=== PATIENT | male | born 1965 | race Caucasian/White ===

== ENCOUNTER 2019-12-08 09:30 | Outpatient (RCR) | payer MEDICARE, MEDICAID, SELFPAY ==
--- NOTE | 2019-11-21 11:22 | HP.PTEVAL_ITS ---
Patient's Visit Information GAGE ANTOINE is a 54 year old M referred to Physical Therapy by NABIL GOODWIN with a diagnosis of S/P SHOULDER SURGERY. Date of Evaluation: 11/21/19 Physical Therapist: Jair Raphael, PT, Cert MDT, OCS - Visit Plan Frequency: 2x /Week Duration: 12WKS Plan: S/P TSA ON OCT 30 [facility]. SEE GUIDELINES FOR PRORESSION WITH TSA. SLING 6 WEEKS,NO IR,CROSS CHEST ADDUCTION 12 WKS,AVOID EXTENSION ,NO SUPPORTING OF BODY WT 12 WKS. S/P 3WEEKS 11/20. INTIALLY PROM IN SCAPTION AND PROGRESS TO PHASE III,IV,AND V PER GUIDELIESS,MANUAL THERAPY ,CP/MHP - Subjective This 54 male presents to physical therapy with right shoulder total replacement. Patient underwent s/p right TSA done on 10/31/[address] Melani Aguilar at [facility]. D/C the next day with sling. Patient recently PA Nov 13 at start PT. 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 Denies parathesia/tingling. Patient symptoms affects sleeping .Patient has limitations with all ADLS' and self hygines with right UE Patient surgery affects ADLS and housework tasks above 90 degrees . Patient surgery affectrs QOL and will have good outcome.Patient tried PT prior PT prior surgery.RTD 6weeks. VOCATION: Construction Own business. SOCAIL: - Pain Right Shoulder Pain Intensity (Out of 10): 6 Pain Intensity Range: 10 - Objective POSTURE: SLING INTACT. NEURO: intact,denies. parathesia/tingling. SKIN:anterior inscion well approximate. PALPATION: unremarkable. PROM RIGHT SHOULDER: supine flexion 90 degrees,abduction in scaption 90 degrees,ER 20 degrees 45 degrees abduction. MMT: NT - Goals Goal 1:: I with HEP per Guidelines TSA. Goal Time Frame: 12-16 Weeks Goal 2:: Patient improve PROM shoulder flexion 140,abd 120 ER 60 for function.(STG) Goal Time Frame: 4-6 Weeks Goal 3:: Patient to decrease shoulder pain with functional activies by 75% for function Goal Time Frame: 12-16 Weeks Goal 4:: Patient increase AROM shoulder flexion 120 degrees ,abd 100 degrees and ER 60 degrees or > to improve function with ADLS. Goal Time Frame: 8-12 Weeks Goal 5:: Patient increase strength RTC 4/5 and deltoid 4-/5 to improve function with ADL's Goal Time Frame: 12-16 Weeks Goal 6:: Patient improve quick dash by 10 points or > to improve QOL. Goal Time Frame: 12-16 Weeks - Rehabilitation Potential Physical Therapy Diagnosis: Patient underwent s/p TSA on Oct 30 at [facility] with impairments of ROM,strength and function thus will benifit from skilled PT. Rehabilitation Potential: Good - Anticipated Interventions Patient/Client Instruction: Educate patient on: Condition, Plan of Care For the Purpose of:: To decrease pain, To increase ROM, To improve muscle performance and motor function, To improve ability to perform ADL's, To increase tolerance to activity/condition/position, To improve performance and independence with ADL's, To improve ability of physical actions for home/comm unity/work/leisure, To improve health of tissue, To decrease soft tissue restriction, To increase flexibility/ROM, To assume or resume ADL's, To reduce risk of recurrence, To improve tolerance to ADL's Therapeutic Exercise to Include: Strength training, Postural training, Passive ROM, Active ROM Comment: SEE GUIDELINES FOR TSA FOR PROGRESSION For the Purpose of:: To decrease pain, To increase ROM, To improve muscle performance and motor function, To improve ability to perform ADL's, To increase tolerance to activity/condition/position, To improve performance and independence with ADL's, To improve ability of physical actions for home/community/work/leisure, To improve health of tissue, To decrease soft tissue restriction, To increase flexibility/ROM, To assume or resume ADL's, To improve tolerance to ADL's IF ES: Yes Cryotherapy (ice pack, ice massage): Yes Thermo therapy (hot pack): Yes For the Purpose of:: To decrease pain, To improve nutrient delivery to tissue, To increase oxygenation perfusion Thank you for the opportunity to evaluate your patient. For Medicare and Medicare HMO plans, please review the plan of care and approve it. It will need to be FAXED BACK to us at [phone] for Medicare purposes. For Medicare only, by signing this I certify the plan of care. Please let me know if there are questions or concerns regarding this plan of care. Physician Signatu re: Date:
--- NOTE | 2020-03-13 10:03 | HP.PTDCNRP_ITS ---
GAGE ANTOINE was seen in my office for initial evaluation on 11/21/19. The following Plan of Care was established for this patient: Initial Frequency: 2x /Week Initial Duration: 12WKS Patient/Client Instruction: Educate patient on: Condition, Plan of Care For the Purpose of:: To decrease pain, To increase ROM, To improve muscle performance and motor function, To improve ability to perform ADL's, To increase tolerance to activity/condition/position, To improve performance and independence with ADL's, To improve ability of physical actions for home/community/work/leisure, To improve health of tissue, To decrease soft tissue restriction, To increase flexibility/ROM, To assume or resume ADL's, To reduce risk of recurrence, To improve tolerance to ADL's Therapeutic Exercise to Include: Strength training, Postural training, Passive ROM, Active ROM For the Purpose of:: To decrease pain, To increase ROM, To improve muscle performance and motor function, To improve ability to perform ADL's, To increase tolerance to activity/condition/position, To improve performance and independence with ADL's, To improve ability of physical actions for home/community/work/leisure, To improve health of tissue, To decrease soft tis hattie restriction, To increase flexibility/ROM, To assume or resume ADL's, To improve tolerance to ADL's IF ES: Yes Cryotherapy (ice pack, ice massage): Yes Thermo therapy (hot pack): Yes For the Purpose of:: To decrease pain, To improve nutrient delivery to tissue, To increase oxygenation perfusion This patient was last seen in our office . Pertinent comments regarding their Physical therapy will appear below: Patient was seen for left shoulder TSA for HEP ,patient didnt complete PT thus is D/C. At this point I will be discontinuing this patient from physical therapy. I would be happy to see this patient again in the future if found appropriate by the physician. Thank you! Jair Raphael, PT, Cert MDT, OCS
== END 2019-12-08 19:00 | disposition home or self-care (01) ==
LOC: PT 09:30
PROVIDERS: PCP Internal Medicine
DX: Z98.890 Other specified postprocedural states (principal)
CPT/HCPCS: 97110; 97140; 97162

== ENCOUNTER 2020-01-01 00:36 | Emergency (ER) | payer MEDICARE, MEDICAID, SELFPAY ==
[2020-01-01 00:36] VITALS: BP 155/85; PULSE 56; PULSE 57; RESP 17; TEMP 36.9; O2SAT 95; O2SAT 97; BMI 41.8
[2020-01-01 00:41] VITALS: O2SAT 95
--- NOTE | 2020-01-01 01:19 | EKG12_ITS ---
Test Reason : SOB Blood Pressure : / mmHG Vent. Rate : 058 BPM Atrial Rate : 058 BPM P-R Int : 114 ms QRS Dur : 086 ms QT Int : 426 ms P-R-T Axes : 012 054 055 degrees QTc Int : 418 ms Sinus bradycardia Low voltage QRS Borderline ECG Confirmed by ANA KAY, CAPRI ([id number]), fan mail editor MAGNOLIA HAMMOND ([id number]) on 01/02/2020 10:35:22 AM Referred By: PAUL Confirmed By:CAPRI PEREZ MD
--- NOTE | 2020-01-01 01:22 | ED.VISSUMM ---
- ER Visit Summary Date of Service: 01/01/20 Chief Complaint: Shortness of breath History of Present Illness: The patient is a 54 M who presents with shortness of breath that is been getting worse over the past 2 days. Patient states he tried using his CPAP tonight but states this did not help. Patient states nothing makes his breathing worse or makes it better. Patient checked his blood pressure tonight and noted it was elevated. Patient then came to the emergency department. Patient denies any fevers or chills. Patient denies any cough. Patient admits to nausea but denies any vomiting. Physical Examination: Vital signs are stable. Patient is afebrile. Patient is in no acute distress. Oral mucosa is pink and moist. Neck is supple. Trachea is midline. There is no JVD noted. Heart was regular rate and rhythm. Lungs are clear but diminished in the bases bilaterally. Abdomen is soft. Bowel sounds are normal. There is no tenderness. There is no rebound or guarding noted. Skin is warm dry. Cranial nerves II through XII are intact. There are no focal motor or sensory deficits noted. Extremities are intact. There is no calf tenderness or edema. Test Results: EKG shows sinus bradycardia with a rate of 58. There are no acute ST or T wave changes. Portable chest x-ray is obtained. There is no acute cardiopulmonary process. CBC, basic metabolic profile, and troponin were obtained and were within normal limits. Emergency Department Course and Treatment: Patient did not wait for his results. Patient left without completing treatment. Disposition: Eloped Impression: 1. Dyspnea This note was generated with [employer] dictation software. It may contain incorrect words, spelling, and punctuation that were not noted in review of the chart prior to signing ED Disposition - Plan for ED Patient: Disposition: Home or Assisted Living Diagnosis: Dyspnea Instructions: ED Dyspnea Referrals: Yamilex Ellington DO [Primary Care Provider] - 5-7 Days
[2020-01-01] MEDS: Ipratropium/Albuterol Sulfate 3 ML AMPUL.NEB INHALATION (01:33)
[2020-01-01 01:39] VITALS: BP 129/75; PULSE 60; RESP 14; O2SAT 100
--- NOTE | 2020-01-01 01:48 | RAD_ITS ---
STUDY: X-RAY CHEST REASON FOR EXAM: Male, 54 years old. DYSPNEA,FEVER,BLURRED VISION TECHNIQUE: Single AP portable view of the chest. COMPARISON: None. FINDINGS: The lungs are clear and expanded. There is no demonstrated pleural abnormality. Normal size heart. Normal mediastinum and guido. Normal visualized pulmonary arteries. Normal visualized aortic arch and descending thoracic aorta. Normal visualized thoracic spine. Partially visualized bilateral shoulder arthroplasty. There is no demonstrated abnormality of the visualized soft tissue structures of the upper abdomen. RAD/Chest 1 View (Portable) IMPRESSION: No active pulmonary disease. Electronically Signed: Alexis Camp MD at 2:07 EDT Tel , Service support ,
[2020-01-01 01:52] LABS: Absolute Lymphocyte Count 3.88 X10^3/uL (0.83-4.51); Absolute Neutrophil Count 5.2 X10^3/uL (2.0-7.7); Basophil# 0.06 X10^3/uL; Basophil% 0.5 % (0-1); Eosinophil# 0.84 X10^3/uL; Eosinophils% 7.7 % (0-5); Hematocrit 41.3 % (40-54); Hemoglobin 13.1 g/dL (13.0-16.5); Lymphocyte # 3.88 X10^3/ul (4.0); Lymphocyte % 35.6 % (19-41); Mean Corp Hgb Conc 31.7 g/dL (32-36); Mean Corpuscular Hgb 28.4 pg (27.0-32.0); Mean Corpuscular Volume 89.4 fL (80-94); Mean Platelet Vol. 10.5 fl (6.2-12.0); Monocyte# 0.86 X10^3/uL; Monocyte% 7.9 % (0-10); NRBC Flagged by Analyzer 0 % (0-5); Neutrophil # 5.23 X10^3/uL (2.7-7.7); Neutrophil % 47.9 % (47-70); Platelet Count 277 K/mm3 (150-450); RBC Distribution Width CV 15.6 % (11.6-14.6); RBC Distribution Width SD 50.7 fl (35.1-43.9); Red Blood Count 4.62 M/mm3 (4.6-6.2); White Blood Count 10.9 K/mm3 (4.4-11.0)
[2020-01-01 02:16] LABS: ALB/GLOB Ratio 0.8 RATIO (0.9-2.4); AST(SGOT) 10 U/L (15-37); Alanine Aminotransfer ALT/SGPT 24 U/L (16-61); Albumin, Serum 3.2 g/dL (3.2-5.0); Alkaline Phosphatase 76 U/L (45-117); BUN 10 mg/dL (7-18); BUN/Creat Ratio 9.5 RATIO (10-20); Calcium,Total 8.6 mg/dL (8.5-10.1); Chloride 109 mmol/L (98-107); Creatinine, Serum 1.05 mg/dL (0.70-1.30); EST Glomerular Filtration Rate 78 mL/min (>60); Est Glom Filt Rate - Afr Amer 95 mL/min (>60); Glucose 144 mg/dL (74-106); Potassium 4.3 mmol/L (3.5-5.1); Protein, Total 7.2 g/dL (6.4-8.2); Sodium Level 141 mmol/L (136-145)
[2020-01-01 02:17] LABS: Anion Gap 6 (5-15)
[2020-01-01 02:41] VITALS: BP 161/76; PULSE 59; RESP 17; O2SAT 97
--- NOTE | 2020-01-01 02:41 | ED.RN ---
PT LEFT BEFORE MD COULD GIVE RESULTS. WITH HIM. NO IV TO REMOVE.
== END 2020-01-01 02:41 | disposition home or self-care (01) ==
PROVIDERS: Emergency Provider Emergency Medicine; PCP Internal Medicine
DX: R06.02 Shortness of breath (principal); E66.9 Obesity, unspecified; E11.9 Type 2 diabetes mellitus without complications; I10 Essential (primary) hypertension; G47.30 Sleep apnea, unspecified; I48.91 Unspecified atrial fibrillation; Z72.0 Tobacco use; Z79.02 Long term (current) use of antithrombotics/antiplatelets; Z79.84 Long term (current) use of oral hypoglycemic drugs; Z79.899 Other long term (current) drug therapy
CPT/HCPCS: 36415; 71045; 80053; 84484; 85025; 93005; 99282

== ENCOUNTER 2020-06-24 02:15 | Emergency (ER) | payer MEDICARE, MEDICAID, SELFPAY ==
[2020-06-24 02:16] VITALS: BP 166/110; PULSE 133; RESP 20; TEMP 37; O2SAT 99; BMI 42.0
--- NOTE | 2020-06-24 02:17 | ED.RN ---
RN CALLED FOR EKG, PULLED OLD EKGS FOR
--- NOTE | 2020-06-24 02:35 | RAD_ITS ---
STUDY: X-RAY CHEST REASON FOR EXAM: Male, 55 years old. Palpitations TECHNIQUE: Single AP portable view of the chest. COMPARISON: 01/01/2020. FINDINGS: The lungs are clear and expanded. There is no demonstrated pleural abnormality. Normal size heart. Normal mediastinum and guido. Normal visualized pulmonary arteries. Normal visualized aortic arch and descending thoracic aorta. Normal visualized thoracic spine. Bilateral shoulder prosthesis in place. Degenerative disease of the shoulders. There is no demonstrated abnormality of the visualized soft tissue structures of the upper abdomen. RAD/Chest 1 View (Portable) IMPRESSION: No acute cardiopulmonary disease. Electronically Signed: Dianna Castrejon MD at 3:04 EDT , Service support ,
--- NOTE | 2020-06-24 02:35 | EKG12_ITS ---
Test Reason : CHEST PRESSURE Blood Pressure : / mmHG Vent. Rate : 143 BPM Atrial Rate : 125 BPM P-R Int : 000 ms QRS Dur : 086 ms QT Int : 320 ms P-R-T Axes : 000 062 -22 degrees QTc Int : 493 ms Atrial fibrillation Abnormal ECG Confirmed by GELY KAY, IRIS ([id number]), editor at large MAGNOLIA HAMMOND ([id number]) on 06/25/2020 8:42:31 AM Referred By: PAUL Confirmed By:CLARENCE HONG MD
--- NOTE | 2020-06-24 02:36 | EKG12_ITS ---
Test Reason : REPEAT Blood Pressure : / mmHG Vent. Rate : 057 BPM Atrial Rate : 057 BPM P-R Int : 126 ms QRS Dur : 084 ms QT Int : 426 ms P-R-T Axes : 041 061 063 degrees QTc Int : 414 ms Sinus bradycardia Otherwise normal ECG Confirmed by GELY KAY, IRIS ([id number]), editor school photograph MAGNOLIA HAMMOND ([id number]) on 06/25/2020 8:42:46 AM Referred By: PAUL Confirmed By:CLARENCE HONG MD
--- NOTE | 2020-06-24 02:37 | ED.VISSUMM ---
- ER Visit Summary Date of Service: 06/24/20 Chief Complaint: Palpitations History of Present Illness: The patient is a 55 M who presents with palpitations and chest pain that is been intermittent for the past 2-1/2 weeks. Patient states that he is been having episodes of atrial fibrillation ever since he got his first Covid vaccine 2-1/2 weeks ago. Patient states that he can feel palpitations and his heart racing whenever he goes into atrial fibrillation. Patient states he has some substernal pressure whenever he goes into that. Patient states he takes sotalol. Patient states the sotalol seems to work approximately an hour and a half after he takes it and he goes back into a normal sinus rhythm. Patient admits to some shortness of breath. Patient denies any nausea or vomiting. Patient does admit to a mild headache. Physical Examination: Vital signs are stable. Patient is afebrile. Patient is in no acute distress. Oral mucosa is pink and moist. Neck is supple. Trachea is midline. There is no JVD noted. Heart was regular rate and rhythm. Lungs are clear and equal bilaterally. Abdomen is soft. Bowel sounds are normal. There is no tenderness. There is no rebound or guarding noted. Skin is warm dry. Cranial nerves II through XII are intact. There are no focal motor or sensory deficits noted. Extremities are intact. There is no calf tenderness or edema. Test Results: EKG was obtained. On my interpretation, it showed atrial fibrillation with a rate of 143. There are no acute ST or T wave changes. The atrial fibrillation is new compared to previous EKG dated 01/01/2020. CBC and comprehensive metabolic profile were within normal limits. PT with INR and PTT were normal. Troponin was normal. Portable 1 view chest x-ray was obtained. On my interpretation, lung santos are clear. There is normal cardiac silhouette. Bony thorax is normal. There is no acute process noted. Radiologist also interpreted the x-ray and agrees. Emergency Department Course and Treatment: While here in the emergency department, patient converted back to a normal sinus rhythm. Repeat EKG was obtained. On my interpretation, it showed a sinus bradycardia with a rate of 57. There are no acute ST or T wave changes. RI interval, QRS interval, and QTc interval are all normal. [place] is normal. Patient was instructed to continue his medications as prescribed. Patient was instructed to follow-up with his sky diver in 2 to 3 days. Patient understood and was agreeable with the plan. All questions were answered. Disposition: Discharge home Impression: 1. Paroxysmal atrial fibrillation This note was generated with [employer] dictation software. It may contain incorrect words, spelling, and punctuation that were not noted in review of the chart prior to signing ED Disposition - Plan for ED Patient: Disposition: Home or Assisted Living Diagnosis: Paroxysmal atrial fibrillation Instructions: ED AFIB Referrals: Yamilex Ellington DO [Primary Care Provider] - 3-5 Days
[2020-06-24 02:42] LABS: Absolute Lymphocyte Count 4.39 X10^3/uL (0.83-4.51); Absolute Neutrophil Count 5.1 X10^3/uL (2.0-7.7); Basophil# 0.07 X10^3/uL; Basophil% 0.6 % (0-1); Eosinophils% 7.2 % (0-5); Hematocrit 45.7 % (40-54); Hemoglobin 15.3 g/dL (13.0-16.5); Lymphocyte # 4.39 X10^3/ul (0.83-4.51); Lymphocyte % 39.8 % (19-41); Mean Corp Hgb Conc 33.5 g/dL (32-36); Mean Corpuscular Hgb 29.8 pg (27.0-32.0); Mean Corpuscular Volume 88.9 fL (80-94); Mean Platelet Vol. 10.3 fl (6.2-12.0); Monocyte# 0.64 X10^3/uL; Monocyte% 5.8 % (0-10); NRBC Flagged by Analyzer 0 % (0-5); Neutrophil # 5.12 X10^3/uL (2.7-7.7); Neutrophil % 46.4 % (47-70); Platelet Count 266 K/mm3 (150-450); RBC Distribution Width CV 15.7 % (11.6-14.6); RBC Distribution Width SD 51.7 fl (35.1-43.9); Red Blood Count 5.14 M/mm3 (4.6-6.2)
[2020-06-24 02:51] LABS: Prothrombin Time (Protime)PT. 12.4 SECONDS (11.7-14.9)
[2020-06-24 02:53] LABS: Partial Thromboplast Time 30.3 Seconds (24.1-36.2)
[2020-06-24 03:00] LABS: ALB/GLOB Ratio 0.8 RATIO (0.9-2.4); AST(SGOT) 8 U/L (15-37); Alanine Aminotransfer ALT/SGPT 23 U/L (16-61); Albumin, Serum 3.6 g/dL (3.2-5.0); Alkaline Phosphatase 75 U/L (45-117); Anion Gap 5 (5-15); BUN 12 mg/dL (7-18); BUN/Creat Ratio 13.6 RATIO (10-20); Calcium,Total 8.9 mg/dL (8.5-10.1); Chloride 105 mmol/L (98-107); Creatinine, Serum 0.88 mg/dL (0.70-1.30); EST Glomerular Filtration Rate 95 mL/min (>60); Est Glom Filt Rate - Afr Amer 115 mL/min (>60); Estimated Creatinine Clearance 105.33 ml/min; Globulin 4.3 g/dL (2.2-4.2); Glucose 226 mg/dL (74-106); Potassium 3.7 mmol/L (3.5-5.1); Protein, Total 7.9 g/dL (6.4-8.2); Sodium Level 138 mmol/L (136-145)
[2020-06-24 03:08] VITALS: BP 140/74; PULSE 57; RESP 20; O2SAT 100
[2020-06-24 03:40] VITALS: BP 127/62; PULSE 56; RESP 16; O2SAT 99
== END 2020-06-24 03:40 | disposition home or self-care (01) ==
PROVIDERS: Emergency Provider Emergency Medicine; PCP Internal Medicine
DX: I48.0 Paroxysmal atrial fibrillation (principal); F17.200 Nicotine dependence, unspecified, uncomplicated; Z79.02 Long term (current) use of antithrombotics/antiplatelets
CPT/HCPCS: 71045; 80053; 84484; 85025; 85610; 85730; 93005; 99284; A4216

== ENCOUNTER 2020-09-04 03:02 | Inpatient (IN) | payer MEDICARE, MEDICAID, SELFPAY ==
[2020-09-04] VITALS (19 sets, daily range): BP systolic 75–129; BP diastolic 50–97; PULSE 71–151; RESP 9–24; TEMP 36.2–36.7; O2SAT 86–99; BMI 41.5; BMI 41.3
--- NOTE | 2020-09-04 03:12 | RAD_ITS ---
STUDY: X-RAY CHEST REASON FOR EXAM: Male, 55 years old. chest pain TECHNIQUE: Single AP portable view of the chest. COMPARISON: 06/24/2020. FINDINGS: The lungs are clear and expanded. There is no demonstrated pleural abnormality. Normal size heart. Normal mediastinum and guido. Normal visualized pulmonary arteries. Normal visualized aortic arch and descending thoracic aorta. Normal visualized thoracic spine. Right-sided proximal humeral prosthesis in place. There is no demonstrated abnormality of the visualized soft tissue structures of the upper abdomen. RAD/Chest 1 View (Portable) IMPRESSION: No acute cardiopulmonary disease. Electronically Signed: Dianna Castrejon MD at 3:41 EDT , Service support ,
--- NOTE | 2020-09-04 03:12 | EKG12_ITS ---
Test Reason : CP Blood Pressure : / mmHG Vent. Rate : 147 BPM Atrial Rate : 133 BPM P-R Int : 000 ms QRS Dur : 088 ms QT Int : 300 ms P-R-T Axes : 000 064 026 degrees QTc Int : 469 ms Atrial fibrillation with rapid ventricular response Abnormal ECG Confirmed by MARGIE KAY, JIMMY ([id number]), international editorial producer ANGELITA RICKS ([id number]) on 09/11/2020 1:00:09 PM Referred By: ERWIN Confirmed By:JIMMY HANSON MD
--- NOTE | 2020-09-04 03:13 | EDS_ITS ---
HPI History of Present Illness Chief Complaint: Palpitations Narrative Narrative: Patient presents with atrial fibrillation. He has a history of this in the past. He has had on and off for last few years. He was seen in our emergency department in June for A. fib with RVR. He converted at that time. He has had difficulties with A. fib recently after his Covid vaccination at the end of May. He is scheduled for an ablation later this week in 2 days at [facility]. Stated he felt it come on about an hour ago. He takes sotalol twice a day. He is scheduled to take metoprolol as needed when he develops A. fib but did not. He states he goes in and out frequently. He is on Eliquis for his atrial fibrillation. Comes in for further evaluation. [facility] Medical History Atrial fibrillation Bilateral chronic knee pain Diabetes mellitus Glenohumeral arthritis HTN (hypertension) Hypercholesterolemia Neuropathy MAX (obstructive sleep apnea) Home Medications apixaban 5 mg PO BID 01/01/20 [History Last Taken Unknown] atorvastatin 40 mg PO QHS 01/01/20 [History Last Taken Unknown] cyclobenzaprine 10 mg PO BID 01/01/20 [History Last Taken Unknown] docusate sodium 100 mg PO BID 01/01/20 [History Last Taken Unknown] fluticasone propionate 2 spray NASAL DAILY 01/01/20 [History Last Taken Unknown] hydralazine 25 mg PO TID 01/01/20 [History Last Taken Unknown] lisinopril 40 mg PO DAILY 01/01/20 [History Last Taken Unknown] loratadine 10 mg PO DAILY 01/01/20 [History Last Taken Unknown] metformin 500 mg PO BID 01/01/20 [History Last Taken Unknown] naloxone 4 mg NS PRN PRN 01/01/20 [History Last Taken Unknown] omeprazole 40 mg PO DAILY 01/01/20 [History Last Taken Unknown] oxycodone-acetaminophen 1 ea PO 4X/DAY PRN PRN 01/01/20 [History Last Taken Unknown] pregabalin 225 mg PO TID 01/01/20 [History Last Taken Unknown] promethazine 25 mg PO BID 01/01/20 [History Last Taken Unknown] sotalol 80 mg PO BID 01/01/20 [History Last Taken Unknown] Allergy/AdvReac Type Severity Reaction Status Date / Time Iodinated Contrast Media AdvReac Upset Verified 09/04/20 03:06 Stomach Social History Smoking Status: Current every day smoker tobacco type: cigarettes ROS ROS ED ROS Narrative ROS General: Denies fever, chills, sweats Eyes: Denies visual changes, blurred vision, double vision ENT: Denies ear pain, rhinorrhea, sore throat Cardiovascular: See HPI Respiratory: Denies dyspnea, cough, sputum, dyspnea on exertion, orthopnea,PND GI: Denies abdominal pain, nausea, vomiting, diarrhea, constipation, melena : Denies dysuria, hematuria, frequency Musculoskeletal: Denies myalgias, arthralgias, neck pain, back pain Skin: Denies rash, abscess, abrasions Neuro: Denies headache, weakness, paresthesia Psych: Denies depression, anxiety Endo: Denies polyuria, polydipsia, polyphagia Heme: Denies easy bruising, easy bleeding, lymphadenopathy Allergy: Denies hives, swelling EXAM Physical Exam Narrative Exam Narrative: Vital signs reviewed General: Well-nourished well-developed Head: Normocephalic atraumatic Eyes: Pupils equal round and reactive to light extraocular movements intact ENT: TMs clear no hemotympanum no trauma Neck: Nontender full range of motion Cardiovascular: Irregular tachycardia no murmurs normal S1-S2 Respiratory: No distress clear to auscultation bilaterally chest nontender Abdomen: Soft nontender nondistended normal bowel sounds no masses Back: Nontender no CVA tenderness Extremities: Nontender active range of motion ?4 extremities no trauma Skin: Normal color no trauma Neuro alert oriented cranial nerves II through XII intact normal strength sensation reflexes Const Vital Signs: 09/04/20 03:03 09/04/20 03:06 09/04/20 03:18 Temperature 97.5 F L Temperature Source Temporal Pulse Rate 150 H Respiratory Rate 12 Respiratory Effort Short of Breath Blood Pressure 123/68 H Blood Pressure Mean 86 Pulse Ox 97 97 Oxygen Delivery Method Room Air Nasal Cannula Oxygen Flow Rate (L/min) 2 09/04/20 03:38 09/04/20 04:29 Temperature Temperature Source Pulse Rate 112 H 124 H Respiratory Rate 18 19 H Respiratory Effort Blood Pressure 108/97 H 124/72 H Blood Pressure Mean 100 89 Pulse Ox 95 96 Oxygen Delivery Method Room Air Nasal Cannula Oxygen Flow Rate (L/min) 2 MDM MDM MDM Narrative Medical decision making narrative: Patient EKG shows A. fib with RVR with no acute ischemic findings. Lab work chest x-ray obtained. Given dose of Cardizem. Heart rate came down to 120s. Lab work unremarkable including CBC other than a white count of 13.9 nonspecific. Troponin levels negative at 7.7. Chest x-ray by my interpretation shows nothing acute. No infiltrates. No evidence of CHF. Patient given a second dose of Cardizem after his initial dose. Rate is 100-120. At this time he remains in A. fib. Will be discussed with the hospitalist. Lab Data Labs: Laboratory Results - last 24 hr 09/04/20 09/04/20 03:06 03:06 WBC 13.9 H RBC 4.97 Hgb 14.3 Hct 44.0 MCV 88.5 MCH 28.8 MCHC 32.5 RDW Std Deviation 52.8 H RDW Coeff of Yamil 16.2 H Plt Count 238 MPV 9.9 Immature Gran % (Auto) 0.400 Neut % (Auto) 54.8 Lymph % (Auto) 28.2 [place] % (Auto) 6.8 Eos % (Auto) 9.2 H Baso % (Auto) 0.6 Absolute Neuts (auto) 7.6 Absolute Lymphs (auto) 3.93 Nucleated RBC % 0 Sodium 138 Potassium 4.0 Chloride 103 Carbon Dioxide 28.0 Anion Gap 7 BUN 10 Creatinine 0.86 Estim Creat Clear Calc 107.78 Est GFR (MDRD) Af Amer 119 Est GFR (MDRD) Non-Af 99 BUN/Creatinine Ratio 11.7 Glucose 160 H Calcium 8.3 L Troponin I High Sens 7.7 Radiography Diagnostic Testing: Radiology Impression Chest X-Ray 09/04/20 03:12 IMPRESSION: No acute cardiopulmonary disease. Electronically Signed: Dianna Castrejon MD at 3:41 EDT , Service support , Discharge Plan Triage Chief Complaint: Palpitations ED Provider: Ozzie Smith Dx/Rx/DC Orders Clinical Impression: Atrial fibrillation with rapid ventricular response Prescriptions: No Action cyclobenzaprine 10 MG tablet 10 mg PO BID RF: 0 atorvastatin 40 MG tablet 40 mg PO QHS RF: 0 metformin 500 MG tablet 500 mg PO BID RF: 0 sotalol 80 MG tablet 80 mg PO BID RF: 0 omeprazole 40 MG capsule,delayed release(DR/EC) 40 mg PO DAILY RF: 0 promethazine 25 MG tablet 25 mg PO BID RF: 0 lisinopril 40 MG tablet 40 mg PO DAILY RF: 0 fluticasone propionate 1 SPRAY spray,suspension 2 spray NASAL DAILY RF: 0 pregabalin 225 MG capsule 225 mg PO TID RF: 0 loratadine 10 MG capsule 10 mg PO DAILY RF: 0 apixaban 5 MG tablet 5 mg PO BID RF: 0 hydralazine 25 MG tablet 25 mg PO TID RF: 0 oxycodone-acetaminophen 1 EACH tablet 1 ea PO 4X/DAY PRN PRN (Reason: Pain 1-10 Or Fever) RF: 0 docusate sodium 100 MG capsule 100 mg PO BID RF: 0 naloxone 4 MG spray,non-aerosol 4 mg NS PRN PRN (Reason: Narcotic Induced Breathing Dif) RF: 0 Primary Care Provider: Yamilex Ellington Referrals: Yamilex Ellington, [Primary Care Provider] - Disposition Disposition: Acute Care Hospital [facility]
[2020-09-04] MEDS: dilTIAZem 25 MG/5 ML Vial 20 MG IV BOLUS ×2 (03:17→04:28)
[2020-09-04 03:18] LABS: Absolute Lymphocyte Count 3.93 X10^3/uL (0.83-4.51); Absolute Neutrophil Count 7.6 X10^3/uL (2.0-7.7); Basophil# 0.08 X10^3/uL; Basophil% 0.6 % (0-1); Eosinophil# 1.28 X10^3/uL; Eosinophils% 9.2 % (0-5); Hemoglobin 14.3 g/dL (13.0-16.5); Lymphocyte # 3.93 X10^3/ul (0.83-4.51); Lymphocyte % 28.2 % (19-41); Mean Corp Hgb Conc 32.5 g/dL (32-36); Mean Corpuscular Hgb 28.8 pg (27.0-32.0); Mean Corpuscular Volume 88.5 fL (80-94); Mean Platelet Vol. 9.9 fl (6.2-12.0); Monocyte# 0.95 X10^3/uL; Monocyte% 6.8 % (0-10); NRBC Flagged by Analyzer 0 % (0-5); Neutrophil # 7.62 X10^3/uL (2.7-7.7); Neutrophil % 54.8 % (47-70); Platelet Count 238 K/mm3 (150-450); RBC Distribution Width CV 16.2 % (11.6-14.6); RBC Distribution Width SD 52.8 fl (35.1-43.9); Red Blood Count 4.97 M/mm3 (4.6-6.2); White Blood Count 13.9 K/mm3 (4.4-11.0)
[2020-09-04 03:31] LABS: Anion Gap 7 (5-15); BUN 10 mg/dL (7-18); BUN/Creat Ratio 11.7 RATIO (10-20); Calcium,Total 8.3 mg/dL (8.5-10.1); Chloride 103 mmol/L (98-107); Creatinine, Serum 0.86 mg/dL (0.70-1.30); EST Glomerular Filtration Rate 99 mL/min (>60); Est Glom Filt Rate - Afr Amer 119 mL/min (>60); Estimated Creatinine Clearance 107.78 ml/min; Glucose 160 mg/dL (74-106); Sodium Level 138 mmol/L (136-145); Troponin-I HS 7.7 pg/mL (3.0-78.5)
[2020-09-04 06:03] LABS: Magnesium 1.9 mg/dL (1.6-2.6)
--- NOTE | 2020-09-04 06:14 | PCM.HP.STD ---
HPI - General General Date of Admission: 09/04/20 Date of Service: 09/04/20 Chief Complaint: Ongoing palpations, racing heart. HPI Narrative The patient is a 55 y/o M w/ PMHx: PAF, HTN, HLD, Diabetes mellitus type II, Morbid obesity, MAX who presents to the [facility] 09/04/20 with history of recurrent A. fib with onset of racing heart and palpitations approximately 1 hour prior to ED presentation reporting that he is supposed to be having an upcoming ablation approximately 2 days at [facility]. He notes associated chest pressure in the midsternal region, nonradiating, currently rated 4 out of 10 in severity and dyspnea with his onset of atrial fibrillation. Patient has been compliant with his sotalol and metoprolol as well as Eliquis until the Eliquis was recently stopped 3 days prior to current planned ablation per his sales solutions associate. He does report that he has been very active over the last week, working outside nonstop try to get things ready prior to his ablation. Patient has required 2-3 chemical cardioversions prior and one electrical cardioversion. Work-up in the ED included T 97.5, heart rate initially 150, respiratory rate 12, 97% on room air, heart rate initially decreasing down to 112 following Cardizem but increasing again to 124, CBC with WBC 13.9, hemoglobin 14.3, platelet 238 without marked shift, BMP unremarkable aside glucose 160, troponin 7.7, chest x-ray with no acute cardiopulmonary findings, EKG with atrial fibrillation with RVR. In the ED patient administered Cardizem 20 mg IV bolus x2. [facility] Medical History (Updated 09/04/20 @ 05:[address] Ozzie Smith MD) Atrial fibrillation Bilateral chronic knee pain Diabetes mellitus Glenohumeral arthritis HTN (hypertension) Hypercholesterolemia Neuropathy MAX (obstructive sleep apnea) Home Medications apixaban 5 mg PO BID 01/01/20 [History Last Taken Unknown] atorvastatin 40 mg PO QHS 01/01/20 [History Last Taken Unknown] cyclobenzaprine 10 mg PO BID 01/01/20 [History Last Taken Unknown] docusate sodium 100 mg PO BID 01/01/20 [History Last Taken Unknown] fluticasone propionate 2 spray NASAL DAILY 01/01/20 [History Last Taken Unknown] hydralazine 25 mg PO TID 01/01/20 [History Last Taken Unknown] lisinopril 40 mg PO DAILY 01/01/20 [History Last Taken Unknown] loratadine 10 mg PO DAILY 01/01/20 [History Last Taken Unknown] metformin 500 mg PO BID 01/01/20 [History Last Taken Unknown] naloxone 4 mg NS PRN PRN 01/01/20 [History Last Taken Unknown] omeprazole 40 mg PO DAILY 01/01/20 [History Last Taken Unknown] oxycodone-acetaminophen 1 ea PO 4X/DAY PRN PRN 01/01/20 [History Last Taken Unknown] pregabalin 225 mg PO TID 01/01/20 [History Last Taken Unknown] promethazine 25 mg PO BID 01/01/20 [History Last Taken Unknown] sotalol 80 mg PO BID 01/01/20 [History Last Taken Unknown] Allergy/AdvReac Type Severity Reaction Status Date / Time Iodinated Contrast Media AdvReac Upset Verified 09/04/20 03:06 Stomach Family History (Updated 09/04/20 @ 06:[address] Claribel Marie MD) Mother Hypertension Father Murder Patient father murdered at age 31. No marked medical history including HD, DM, CA. Surgical History (Updated 09/04/20 @ 06:[address] Claribel Marie MD) H/O carpal tunnel repair H/O shoulder replacement S/P ACL repair S/P tonsillectomy and adenoidectomy Social History (Updated 09/04/20 @ 06:[address] Claribel Marie MD) household members: spouse Smoking Status: Current every day smoker tobacco type: cigarettes how long ago did patient quit smoking: Patient smokes 2-3 cigarettes daily, has been cutting back for ablation. alcohol intake: never substance use type: does not use ROS ROS Narrative Admission Review of Systems: CONSTITUTIONAL: No weight loss, fever, chills, + weakness or fatigue. HEENT: Eyes: No visual loss, blurred vision, double vision or yellow sclerae. Ears, Nose, Throat: No hearing loss, sneezing, congestion, runny nose or sore throat. SKIN: No rash or itching, lesions, wounds. CARDIOVASCULAR: + chest pain, chest pressure or chest discomfort, palpitations, No edema, orthopnea, syncopal events. RESPIRATORY: + shortness of breath, No cough or sputum, wheezing, hemoptysis. GASTROINTESTINAL: + anorexia, nausea, No vomiting or diarrhea, abdominal pain, melena, BRBPR. GENITOURINARY: No dysuria, frequency, urgency or retention. NEUROLOGICAL: No headache, dizziness, syncope, paralysis, ataxia, numbness or tingling in the extremities, focal weakness, change in bowel or bladder control, seizure. MUSCULOSKELETAL: + muscle, back pain, joint pain or stiffness. HEMATOLOGIC: + anemia, bleeding or bruising. LYMPHATICS: No enlarged nodes. No history of splenectomy. PSYCHIATRIC: No history of depression or anxiety. ENDOCRINOLOGIC: No reports of sweating, cold or heat intolerance. No polyuria or polydipsia. ALLERGIES: No history of asthma, hives, eczema or rhinitis. Vital Signs Vital Signs Vital Signs: 09/04/20 03:03 09/04/20 03:06 09/04/20 03:18 Temperature 97.5 F L Temperature Source Temporal Pulse Rate 150 H Respiratory Rate 12 Respiratory Effort Short of Breath Blood Pressure 123/68 H Blood Pressure Mean 86 Pulse Ox 97 97 Oxygen Delivery Method Room Air Nasal Cannula Oxygen Flow Rate (L/min) 2 09/04/20 03:38 09/04/20 04:29 Temperature Temperature Source Pulse Rate 112 H 124 H Respiratory Rate 18 19 H Respiratory Effort Blood Pressure 108/97 H 124/72 H Blood Pressure Mean 100 89 Pulse Ox 95 96 Oxygen Delivery Method Room Air Nasal Cannula Oxygen Flow Rate (L/min) 2 Weight Weight: 306 lb 14.135 oz Body Mass Index (BMI) 41.5 Physical Exam Narrative Physical Examination: General: Awake, alert, oriented x 3 and cooperative, laying in the ED bed, fatigued appearing. Skin: Normal color, normal turgor, no icterus, no cyanosis except various abrasions to the extremities. HEENT: AT/NC, EOMI, PERRLA, mildly dry MM, no carotid bruits or JVD; however, habitus with thickened neck makes examination difficult. Lungs: CTA bilaterally, moderate effort, mild decrease BL bases, no rales, ronchi or wheezing. Heart: Irregular regular; no gallop, rub audible. Abdomen: Soft, morbidly obese, NTTP, ND, normal BS, no HSM. Extremities: No cyanosis, clubbing, or edema. Neurological: Patient awake, alert, oriented as noted, cognitive function intact; pupils equally reactive to light and accommodation, cranial nerves II-XII grossly normal, moving all 4 extremities, no focal deficits, strength mildly moderately global decrease secondary to acute presentation. Psychiatric: Affect appears fatigued otherwise normal, no acute evidence of depressive or anxiety feelings. Results Lab / Micro Data Result Diagrams: 09/04/20 03:06 09/04/20 03:06 Labs: Laboratory Results - last 24 hr 09/04/20 09/04/20 03:06 03:06 WBC 13.9 H RBC 4.97 Hgb 14.3 Hct 44.0 MCV 88.5 MCH 28.8 MCHC 32.5 RDW Std Deviation 52.8 H RDW Coeff of Yamil 16.2 H Plt Count 238 MPV 9.9 Immature Gran % (Auto) 0.400 Neut % (Auto) 54.8 Lymph % (Auto) 28.2 Rabun % (Auto) 6.8 Eos % (Auto) 9.2 H Baso % (Auto) 0.6 Absolute Neuts (auto) 7.6 Absolute Lymphs (auto) 3.93 Nucleated RBC % 0 Sodium 138 Potassium 4.0 Chloride 103 Carbon Dioxide 28.0 Anion Gap 7 BUN 10 Creatinine 0.86 Estim Creat Clear Calc 107.78 Est GFR (MDRD) Af Amer 119 Est GFR (MDRD) Non-Af 99 BUN/Creatinine Ratio 11.7 Glucose 160 H Calcium 8.3 L Troponin I High Sens 7.7 Radiology Impression Chest X-Ray 09/04/20 03:12 IMPRESSION: No acute cardiopulmonary disease. Electronically Signed: Dianna Castrejon MD at 3:41 EDT , Service support , Assessment & Plan Assessment/Plan (1) Atrial fibrillation with rapid ventricular response: PLAN: The patient is a 55 y/o M w/ PMHx: PAF, HTN, HLD, Diabetes mellitus type II, Morbid obesity, MAX who presents to the [facility] 09/04/20 with history of recurrent A. fib with onset of racing heart and palpitations approximately 1 hour prior to ED presentation reporting that he is supposed to be having an upcoming ablation approximately 2 days at [facility]. 1. Paroxysmal atrial fibrillation with RVR: EKG in ED w/ atrial fibrillation w/ RVR. Patient administered Cardizem 20 mg IV x2 boluses in ED. Will admit to PCU, maintain on telemetry, obtain cardiac enzyme serial set, obtain magnesium level, obtain TSH level. We will continue patient sotalol regimen. Will hold on restarting Eliquis given recent hold for planned ablation. May consider therapeutic Lovenox dosing as needed. Recent echocardiogram performed at the [facility] 07/01/2020 with normal LV size, LV systolic function 68%, normal LV diastolic function, no significant valvular abnormalities therefore would not repeat. 2. Diabetes mellitus type II with no apathy: Hold oral home regimen, ADA diet, accu checks w/ ISS, continue patient home pregabalin regimen. 3. Hypertension: Continue home regimen including lisinopril, hydralazine with hold parameters, PRN hydralazine. 4. Hyperlipidemia: Continue home statin regimen. 5. Morbid Obesity: Weight loss and lifestyle changes encouraged, nutrition consulted. 6. GERD: Continue home PPI. 7. MAX: We will continue CPAP nightly. 8. DVT prophylaxis: SCDs, holding patient home apixaban for ablation, may need to consider pulsed dosing therapeutic Lovenox. Charges/Coding Visit Charges Inpatient E&M: 98446 Init Hosp L3
[2020-09-04] MEDS: hydrALAZINE 25 MG Tablet PO (06:52)
[2020-09-04] MEDS: Pregabalin 75 MG Capsule 225 MG PO (06:53)
[2020-09-04] MEDS: Sotalol Hydrochloride 80 MG Tablet PO (06:53)
[2020-09-04] MEDS: proCHLORPERazine 10 MG/2 ML Vial 5 MG IV (06:54)
[2020-09-04] MEDS: 0.9% Saline Lock 10 ML Syringe IV (06:54)
[2020-09-04 07:00] LABS: Bedside Glucose 136 mg/dL (70-110)
[2020-09-04 09:38] LABS: Troponin-I HS 4.8 pg/mL (3.0-78.5)
[2020-09-04] MEDS: Loratadine 10 MG Tablet PO (09:47)
[2020-09-04] MEDS: Aspirin 81 MG TAB.CHEW PO (09:47)
[2020-09-04] MEDS: dilTIAZem CD 120 MG Capsule PO (09:47)
[2020-09-04] MEDS: Pantoprazole Sodium 40 MG Tablet PO (09:48)
[2020-09-04] MEDS: Docusate Sodium 100 MG Capsule PO (09:48)
[2020-09-04] MEDS: Lisinopril 40 MG Tablet PO (09:48)
[2020-09-04] MEDS: Fluticasone 0.05% 1 SPRAY NASAL.SRY 2 SPRAY NASAL (09:48)
--- NOTE | 2020-09-04 11:44 | DCINST_ITS ---
Discharge Instructions Diet Discharge Diet: No restrictions Activity Discharge Activity: Return to Normal Activity Follow Up Care Test Results: Test results from this visit will be discussed in further detail at your follow-up appointment, if applicable. Discharge Plan Admission Admit Date/Time: 09/04/20 05:50 Primary Reason for Your Visit: Atrial Fibrillation w/ RVR Attending Provider: Zachariah Slade Primary Care Provider: Yamilex Ellington Instructions Additional Instructions / Restrictions: Eliquis has been discontinued in anticipation for scheduled Ablation tomorrow. Resume at recommendation of your surgeon/special services director. Discharge Orders/Prescriptions Prescriptions: New diltiazem HCl [Cardizem CD] 120 mg capsule,extended release 24hr 120 mg PO BID Qty: 60 RF: 0 Continued cyclobenzaprine 10 MG tablet 10 mg PO BID PRN (Reason: Muscle Spasm) RF: 0 atorvastatin 40 MG tablet 20 mg PO QHS RF: 0 metformin 500 MG tablet 500 mg PO BID RF: 0 sotalol 80 MG tablet 80 mg PO BID RF: 0 omeprazole 40 MG capsule,delayed release(DR/EC) 40 mg PO DAILY RF: 0 promethazine 25 MG tablet 25 mg PO BID PRN (Reason: Nausea) RF: 0 lisinopril 40 MG tablet 40 mg PO DAILY RF: 0 fluticasone propionate 1 SPRAY spray,suspension 2 spray NASAL DAILY RF: 0 pregabalin 225 MG capsule 225 mg PO TID RF: 0 loratadine 10 MG capsule 10 mg PO DAILY RF: 0 hydralazine 25 MG tablet 25 mg PO TID RF: 0 oxycodone-acetaminophen 1 EACH tablet 1 ea PO 4X/DAY PRN PRN (Reason: Pain 1-10) RF: 0 docusate sodium 100 MG capsule 100 mg PO BID RF: 0 meclizine 12.5 mg Tablet 12.5 mg PO BID RF: 0 Discontinued apixaban 5 MG tablet 5 mg PO BID RF: 0 Referrals / Follow Up: Yamilex Ellington DO [Primary Care Provider] - Within 2 Weeks Disposition Disposition (needs filled in before D/C Order can be placed): Home, Self Care
--- NOTE | 2020-09-04 11:47 | NT.THERAPY_ITS ---
Medical Nutrition Therapy - History Nutrition Services has been consulted to:: Manage nutrient details of diet order, Conduct nutrition education Current diet/nutrition support order:: cardiac, 1800 calorie controlled - Anthropometric Measurements Height:: 6 ft Weight:: 138.3 kg Body Mass Index (BMI):: 41.3 - Relevant Labs Relevant Labs:: WBC 13.9 K/mm3 (4.4-11.0) H 09/04/20 03:06 RDW Std Deviation 52.8 fl (35.1-43.9) H 09/04/20 03:06 RDW Coeff of Yamil 16.2 % (11.6-14.6) H 09/04/20 03:06 Eos % (Auto) 9.2 % (0-5) H 09/04/20 03:06 Glucose 160 mg/dL (74-106) H 09/04/20 03:06 Calcium 8.3 mg/dL (8.5-10.1) L 09/04/20 03:06 - Assessment Food and Nutrient Intake: Pt reports good appetite/intake currently and [employer] SALES REPRESENTATIVE. States wt fluctuates ~10-20# pending fluid status. UBW 290# and CBW 304.9#. - Nutrition Diagnosis: Clinical Problem Unintended Weight Gain Clinical Problem - Etiology: r/t fluid status, increased sodium intake Clinical Problem - Signs/Symptoms: as evidenced by unintentional wt gain of ~15# RET[employer] W[employer] SALES REPRESENTATIVE Status: Active Problem - Nutrition Diagnosis: Behavioral Problem Food and Nutrition Related Knowledge Deficit Behavioral-Environmental Problem - Etiology: r/t lack of nutrition education regarding heart healthy diet Behavioral-Enviornmental Problem - Signs/Symptoms: as evidenced by reported lack of knowledge of low sodium, low fat foods Status: Active Problem - Protein Calorie Malnutrition Evidence of Malnutrition Exists: No - Nutrition Intervention Nutrition Prescription: [id number] calories/day (22-25 calories/kg IBW). 80-90 g protein/day (1.0 g/kg). 2000mL fluid/day (1mL/calorie) - Food / Nutrient Delivery Interventions Summary of nutrition intervention:: Nutrition education provided Nutrition support ordered as / adjusted to:: continue cardiac, 1800 calorie controlled diet Nutrition education provided?: Yes - see RDN assessment for further information Nutrition Counseling: Pt appears motivated to make dietary changes. States its been hard and notes that having multiple medical conditions to manage has been challenging. Emotional support provided. Encouraged pt to follow-up w/ [facility]-information given to . Coordination of Nutrition Care: Recommend outpatient follow-up w/ [facility] - MNT Monitoring Active Nutrition Patient: Yes Nutrition Status: Requires Follow Up 5-7 Days
--- NOTE | 2020-09-04 12:15 | CASEMGMT ---
RN CM FOOD AND DRUG INSPECTOR CM to room to meet with patient for initial transition planning/care coordination assessment. RN MATTHEW introduced self and role at [facility]. Pt voices understanding and consents to assessment at this time. Pt resting in bed in no distress at this time. Pt is A/O at this time and answers all questions appropriately. Care providers, pharmacy, and demographics verified/updated at this time. PCP: Dr Ellington Specialists: Dr Neri--[place] @ [facility], Dr Vance-- cardiology/EP. Is scheduled to have ablation done tomorrow morning 09/05 @ 0800 @ [facility] Dr Melani Aguilar--ortho Preferred Pharmacy: [facility] [place], [place] Insurance: [facility] Dual Prescription Benefit: Yes LNOK: , [place] Living Arrangements: Lives w/ and 2 adult sons. Independent Transportation: Pt states drives self and states no transportation concerns at this time. also drives DME: States has the following DME: functioning glucometer w/supplies, pulse ox, BP machine, CPAP w/O2-bleed in @ 1 L/M. Has concentrator. Has a walker and cane that he seldom uses Pt states no need for further DME at this time. HHC/SNF: No history of either. No needs identified. Pt wishes to return home and states has no concerns with going home at time of discharge. CM to follow for any discharge planning/needs. Pt voices no concerns/needs at this time. Advised pt to ask for CM if any questions/concerns/needs arise. Voices understanding. PLAN: Home w/family support and discharge plans in place. Jese PISANO RN, CM
[2020-09-04 12:39] LABS: Troponin-I HS 5.8 pg/mL (3.0-78.5)
--- NOTE | 2020-09-04 14:01 | PCM.DC.SUM ---
Documented by User: Edwin WESTBROOK 09/04/20 14:06 Providers Date of Admission: 09/04/20 Primary Care Physician: Dr. Yamilex Ellington DO Reason For Visit: PAF W/ RVR Diagnosis Discharge Diagnosis (1) Atrial fibrillation with rapid ventricular response: Status: Acute Code(s): I48.91 - Unspecified atrial fibrillation Medications at Discharge Home Medications atorvastatin 20 mg PO QHS 01/01/20 cyclobenzaprine 10 mg PO BID PRN 01/01/20 docusate sodium 100 mg PO BID 01/01/20 fluticasone propionate 2 spray NASAL DAILY 01/01/20 hydralazine 25 mg PO TID 01/01/20 lisinopril 40 mg PO DAILY 01/01/20 loratadine 10 mg PO DAILY 01/01/20 metformin 500 mg PO BID 01/01/20 omeprazole 40 mg PO DAILY 01/01/20 oxycodone-acetaminophen 1 ea PO 4X/DAY PRN PRN 01/01/20 pregabalin 225 mg PO TID 01/01/20 promethazine 25 mg PO BID PRN 01/01/20 sotalol 80 mg PO BID 01/01/20 diltiazem HCl [Cardizem CD] 120 mg PO BID #60 cap 09/04/20 meclizine 12.5 mg PO BID 09/04/20 Hospital Course Summary of Care Provided Minutes Spent on Discharge: 35 Hospital Course: 1) paroxysmal atrial fibrillation with RVR EKG in the ED demonstrated atrial fibrillation with RVR. High-sensitivity troponins not elevated throughout cycle. Patient has scheduled ablation at [facility] on 09/05/2020. Patient rate was controlled on Cardizem while admitted, will continue at discharge. Plan; initiate Cardizem 100 mg p.o. twice daily, report to your scheduled ablation on 09/05. 2) DM2 with neuropathy Continue home oral regimen as well as pregabalin regimen. 3) HTN Stable, continue home HTN regimen. 4) hyperlipidemia Continue statin 5) morbid obesity Weight loss and lifestyle changes recommended 6) GERD Continue PPI 7) MAX Continue home CPAP Patient seen by Edwin Solorzano PA-C, under the supervision of Dr. Slade Physical Exam Narrative Patient is a 55-year-old male comfortably resting in bed, alert and orient x3. Denies chest pain, shortness of breath, palpitations, fever, chills, N/V/D. Const alert, oriented x3 and no apparent distress HEENT normocephalic, head/scalp atraumatic and hearing grossly normal bilaterally Eyes EOMs intact bilaterally and conjunctivae normal Neck no lymphadenopathy, supple and no JVD Resp normal respiratory effort, no retractions, no use of accessory muscles and clear to auscultation bilaterally Cardio regular rate, regular rhythm, no murmurs and no JVD GI normal to inspection, nondistended, normoactive bowel sounds, soft to palpation and non-tender Extremity normal to inspection, full ROM and no clubbing, cyanosis or edema Skin no rashes or lesions noted, no wounds and skin turgor normal Neuro CN's II-XII intact bilaterally Psych affect normal Weight / BMI Weight Weight: 304 lb 14.389 oz Body Mass Index (BMI) 41.3 ABG / Lab / Microbiology Data Result Diagrams: 09/04/20 03:06 09/04/20 03:06 Laboratory: Laboratory Results - last 24 hr 09/04/20 09/04/20 09/04/20 03:06 03:06 03:06 WBC 13.9 H RBC 4.97 Hgb 14.3 Hct 44.0 MCV 88.5 MCH 28.8 MCHC 32.5 RDW Std Deviation 52.8 H RDW Coeff of Yamil 16.2 H Plt Count 238 MPV 9.9 Immature Gran % (Auto) 0.400 Neut % (Auto) 54.8 Lymph % (Auto) 28.2 [place] % (Auto) 6.8 Eos % (Auto) 9.2 H Baso % (Auto) 0.6 Absolute Neuts (auto) 7.6 Absolute Lymphs (auto) 3.93 Nucleated RBC % 0 Sodium 138 Potassium 4.0 Chloride 103 Carbon Dioxide 28.0 Anion Gap 7 BUN 10 Creatinine 0.86 Estim Creat Clear Calc 107.78 Est GFR (MDRD) Af Amer 119 Est GFR (MDRD) Non-Af 99 BUN/Creatinine Ratio 11.7 Glucose 160 H Calcium 8.3 L Magnesium 1.9 Troponin I High Sens 7.7 POC Glucose 09/04/20 09/04/20 09/04/20 06:40 06:57 08:55 WBC RBC Hgb Hct MCV MCH MCHC RDW Std Deviation RDW Coeff of Yamil Plt Count MPV Immature Gran % (Auto) Neut % (Auto) Lymph % (Auto) [place] % (Auto) Eos % (Auto) Baso % (Auto) Absolute Neuts (auto) Absolute Lymphs (auto) Nucleated RBC % Sodium Potassium Chloride Carbon Dioxide Anion Gap BUN Creatinine Estim Creat Clear Calc Est GFR (MDRD) Af Amer Est GFR (MDRD) Non-Af BUN/Creatinine Ratio Glucose Calcium Magnesium Troponin I High Sens 7.0 4.8 POC Glucose 136 H 09/04/20 12:09 WBC RBC Hgb Hct MCV MCH MCHC RDW Std Deviation RDW Coeff of Yamil Plt Count MPV Immature Gran % (Auto) Neut % (Auto) Lymph % (Auto) [place] % (Auto) Eos % (Auto) Baso % (Auto) Absolute Neuts (auto) Absolute Lymphs (auto) Nucleated RBC % Sodium Potassium Chloride Carbon Dioxide Anion Gap BUN Creatinine Estim Creat Clear Calc Est GFR (MDRD) Af Amer Est GFR (MDRD) Non-Af BUN/Creatinine Ratio Glucose Calcium Magnesium Troponin I High Sens 5.8 POC Glucose Radiography Diagnostic Testing: Radiology Impression Chest X-Ray 09/04/20 03:12 IMPRESSION: No acute cardiopulmonary disease. Electronically Signed: Dianna Castrejon MD at 3:41 EDT , Service support , D/C Instructions Discharge Diet: No restrictions Meaningful Use Info Meaningful Use Diagnoses (Choose all that apply): None applicable Discharge Plan Admission Admit Date/Time: 09/04/20 05:50 Primary Reason for Your Visit: Atrial Fibrillation w/ RVR Attending Provider: Zachariah Slade Primary Care Provider: Yamilex Ellington Instructions Additional Instructions / Restrictions: Patient Problems: Patient Goals: Patient Problems: Patient Goals: Eliquis has been discontinued in anticipation for scheduled Ablation tomorrow. Resume at recommendation of your surgeon/agricultural education teacher. Discharge Orders/Prescriptions Prescriptions: New diltiazem HCl [Cardizem CD] 120 mg capsule,extended release 24hr 120 mg PO BID Qty: 60 RF: 0 Continued cyclobenzaprine 10 MG tablet 10 mg PO BID PRN (Reason: Muscle Spasm) RF: 0 atorvastatin 40 MG tablet 20 mg PO QHS RF: 0 metformin 500 MG tablet 500 mg PO BID RF: 0 sotalol 80 MG tablet 80 mg PO BID RF: 0 omeprazole 40 MG capsule,delayed release(DR/EC) 40 mg PO DAILY RF: 0 promethazine 25 MG tablet 25 mg PO BID PRN (Reason: Nausea) RF: 0 lisinopril 40 MG tablet 40 mg PO DAILY RF: 0 fluticasone propionate 1 SPRAY spray,suspension 2 spray NASAL DAILY RF: 0 pregabalin 225 MG capsule 225 mg PO TID RF: 0 loratadine 10 MG capsule 10 mg PO DAILY RF: 0 hydralazine 25 MG tablet 25 mg PO TID RF: 0 oxycodone-acetaminophen 1 EACH tablet 1 ea PO 4X/DAY PRN PRN (Reason: Pain 1-10) RF: 0 docusate sodium 100 MG capsule 100 mg PO BID RF: 0 meclizine 12.5 mg Tablet 12.5 mg PO BID RF: 0 Discontinued apixaban 5 MG tablet 5 mg PO BID RF: 0 Referrals / Follow Up: Yamilex Ellington DO [Primary Care Provider] - Within 2 Weeks (Please call to schedule follow up appointment) Disposition Disposition (needs filled in before D/C Order can be placed): Home, Self Care Documented by User: Dr. Zachariah Slade MD 09/04/20 15:43 Providers Date of Admission: 09/04/20 Reason For Visit: PAF W/ RVR Medications at Discharge Home Medications atorvastatin 20 mg PO QHS 01/01/20 cyclobenzaprine 10 mg PO BID PRN 01/01/20 docusate sodium 100 mg PO BID 01/01/20 fluticasone propionate 2 spray NASAL DAILY 01/01/20 hydralazine 25 mg PO TID 01/01/20 lisinopril 40 mg PO DAILY 01/01/20 loratadine 10 mg PO DAILY 01/01/20 metformin 500 mg PO BID 01/01/20 omeprazole 40 mg PO DAILY 01/01/20 oxycodone-acetaminophen 1 ea PO 4X/DAY PRN PRN 01/01/20 pregabalin 225 mg PO TID 01/01/20 promethazine 25 mg PO BID PRN 01/01/20 sotalol 80 mg PO BID 01/01/20 diltiazem HCl [Cardizem CD] 120 mg PO BID #60 cap 09/04/20 meclizine 12.5 mg PO BID 09/04/20 Hospital Course Summary of Care Provided Hospital Course: This patient was seen in conjunction with PIETRO Pantoja. I have independently interviewed and examined the patient and reviewed pertinent history, examination findings, laboratory and plan of management. I have reviewed the note and agree with the documented findings with the few additional points. In brief, patient is admitted for A. fib with RVR, chronic in nature, failed multiple attempts of electrocardioversion. Patient follows agricultural education teacher Dr. Harris and elective ablation with Dr. Herrera, Surgeon in [facility]. Patient on sotalol 80 mg twice daily. Patient has medical record in his phone and he showed me. 2D echo in July 2020 shows 68.5% with normal LV systolic function with no significant valvular abnormality. His blood work from July 2020 reviewed shows total cholesterol 148, LDL 85, HDL 26. A1c 6.9% in June 2020. Glucose is controlled. Chest x-ray on July 12, 2020 no acute abnormality. EKG showing sinus bradycardia. While in PCU serial troponins were negative. EKG shows A. fib. Cardizem CD 120 mill p.o. twice daily added advised to keep holding Eliquis and follow-up for planned procedure of ablation with agricultural education teacher as mentioned above. Other comorbidities including diabetes mellitus type 2, hypertension, dyslipidemia, coronary sleep apnea: At baseline. BP 120/58. WBC count 13.9 thousand. Patient not having any signs symptoms of infection. No fever. WBC count was 9.4 thousand in July 2020. Random, POC glucose 120. Discharge medication reconciliation done. Discharge follow-up instructions completed. Discharge process discussed with the patient and all questions were answered to patient's satisfaction. Discharge home. Total time spent, exact 35 minutes on discharge meds reconciliation, examination, coordination of care with nurses and ancillary staff, review of imaging and blood test and discussion with the patient on follow-up instructions I have discussed my assessment with PIETRO Pantoja and orders have been reviewed. Physical Exam Narrative Heart rate is controlled. In A. fib Previously he failed 1 electric cardioversion in 2?3 chemical cardioversion and Eliquis is stopped as preparation for ablation tomorrow at [facility]. Heart rate is controlled on IV Cardizem drip, being tapered off and supplement with Cardizem CD 120 mg p.o. twice daily Physical exam General: Alert, Oriented x3, Cooperative, morbid obesity BMI 41.4 kg/m? HEENT: Atraumatic, PERRLA, EOMI, Normocephalic Oral: No Gingival or Mucosal Lesions/ Ulcerations Neck: Supple, No JVD, Negative Carotid Bruits Lungs: Air entry diminished in bilateral lung bases. No crepitation/rhonchi Cardiovascular: Irregular rate and rhythm, Normal S1, Normal S2, No murmurs Abdomen: Bowel Sounds Present, Soft, Non Tender, Non-Distended : No renal angle tenderness. No suprapubic tenderness. Extremities: No edema, Capillary Refill Less than 3 Seconds Skin: No rashes, No breakdown Musculoskeletal: No Tenderness to Palpation of Joints or Extremities Neurological: Cranial nerves II-XII grossly intact, Deep Tendon Reflexes 2+/4 and Symmetrical, Neuro grossly intact Psych/Mental Status: Normal Affect, Appropriate. ABG / Lab / Microbiology Data Result Diagrams: 09/04/20 03:06 09/04/20 03:06 Meaningful Use Info Meaningful Use Diagnoses (Choose all that apply): None applicable Discharge Plan Admission Admit Date/Time: 09/04/20 05:50 Primary Reason for Your Visit: Atrial Fibrillation w/ RVR Attending Provider: Zachariah Slade Primary Care Provider: Yamilex Ellington Instructions Additional Instructions / Restrictions: Patient Problems: Patient Goals: Patient Problems: Patient Goals: Eliquis has been discontinued in anticipation for scheduled Ablation tomorrow. Resume at recommendation of your surgeon/agricultural education teacher. Discharge Orders/Prescriptions Prescriptions: New diltiazem HCl [Cardizem CD] 120 mg capsule,extended release 24hr 120 mg PO BID Qty: 60 RF: 0 Continued cyclobenzaprine 10 MG tablet 10 mg PO BID PRN (Reason: Muscle Spasm) RF: 0 atorvastatin 40 MG tablet 20 mg PO QHS RF: 0 metformin 500 MG tablet 500 mg PO BID RF: 0 sotalol 80 MG tablet 80 mg PO BID RF: 0 omeprazole 40 MG capsule,delayed release(DR/EC) 40 mg PO DAILY RF: 0 promethazine 25 MG tablet 25 mg PO BID PRN (Reason: Nausea) RF: 0 lisinopril 40 MG tablet 40 mg PO DAILY RF: 0 fluticasone propionate 1 SPRAY spray,suspension 2 spray NASAL DAILY RF: 0 pregabalin 225 MG capsule 225 mg PO TID RF: 0 loratadine 10 MG capsule 10 mg PO DAILY RF: 0 hydralazine 25 MG tablet 25 mg PO TID RF: 0 oxycodone-acetaminophen 1 EACH tablet 1 ea PO 4X/DAY PRN PRN (Reason: Pain 1-10) RF: 0 docusate sodium 100 MG capsule 100 mg PO BID RF: 0 meclizine 12.5 mg Tablet 12.5 mg PO BID RF: 0 Discontinued apixaban 5 MG tablet 5 mg PO BID RF: 0 Referrals / Follow Up: Yamilex Ellington DO [Primary Care Provider] - Within 2 Weeks (Please call to schedule follow up appointment) Disposition Disposition (needs filled in before D/C Order can be placed): Home, Self Care Charges/Coding Visit Charges Inpatient E&M: 61951 Disch Hosp
[2020-09-04 14:45] LABS: Bedside Glucose 120 mg/dL (70-110)
== END 2020-09-04 13:04 | disposition home or self-care (01) | DRG 309 ==
LOC: ED 05:38 → PCU 06:01
PROVIDERS: Admitting Provider Family Medicine; Emergency Provider Emergency Medicine; PCP Internal Medicine; Visit Provider Internal Medicine
DX: I48.0 Paroxysmal atrial fibrillation (principal); Z68.41 Body mass index [BMI] 40.0-44.9, adult; E11.40 Type 2 diabetes mellitus with diabetic neuropathy, unspecified; I10 Essential (primary) hypertension; E78.5 Hyperlipidemia, unspecified; E66.01 Morbid (severe) obesity due to excess calories; K21.9 Gastro-esophageal reflux disease without esophagitis; G47.33 Obstructive sleep apnea (adult) (pediatric); Z79.02 Long term (current) use of antithrombotics/antiplatelets; F17.210 Nicotine dependence, cigarettes, uncomplicated; Z79.899 Other long term (current) drug therapy
CPT/HCPCS: 36415; 71045; 80048; 82962; 83735; 84484; 85025; 93005; 97802; 99284; 99406; A4216

== ENCOUNTER 2020-09-07 20:11 | Emergency (ER) | payer MEDICARE, MEDICAID, SELFPAY ==
[2020-09-04 11:48] VITALS: BMI 41.3
[2020-09-07 20:12] VITALS: BP 178/105; PULSE 75; RESP 16; TEMP 36.2; O2SAT 91; BMI 42.5
--- NOTE | 2020-09-07 20:29 | EDS_ITS ---
HPI History of Present Illness Chief Complaint: General Illness Informant: patient and spouse/S.O. Onset/Context/Timing Onset: Today Context: Gradual Onset Timing: Continuous Current Severity: Mild Maximum Severity: Mild Narrative Narrative: 55-year-old male chronic history of A. fib for years. On the blood thinner Eliquis. On he had a cardiac ablation done for A. fib at [facility] in [place], [place]. Procedure went well. He is back on his Eliquis. Today they noticed bruising in his right antecubital area of his arm where he had a peripheral IV and a little bit in his groin where he had the cardiac catheterization procedure. He denies otherwise being ill. Prior similar symptoms: No Recent Illness/Hospitalization: No PFSH PFSH Medical History Atrial fibrillation Atrial fibrillation Bilateral chronic knee pain Chest pain Congestive heart failure (CHF) Diabetes mellitus Glenohumeral arthritis HTN (hypertension) Hypercholesterolemia Hypertension Irregular heart beat Neuropathy MAX (obstructive sleep apnea) Sleep apnea Home Medications atorvastatin 20 mg PO QHS 01/01/20 [History Last Taken 09/03/20 21:00] cyclobenzaprine 10 mg PO BID PRN 01/01/20 [History Last Taken Unknown] docusate sodium 100 mg PO BID 01/01/20 [History Last Taken 09/03/20 21:00] fluticasone propionate 2 spray NASAL DAILY 01/01/20 [History Last Taken 09/04/20 09:00] hydralazine 25 mg PO TID 01/01/20 [History Last Taken 09/03/20 21:00] lisinopril 40 mg PO DAILY 01/01/20 [History Last Taken 09/04/20 09:00] loratadine 10 mg PO DAILY 01/01/20 [History Last Taken 09/04/20 09:00] metformin 500 mg PO BID 01/01/20 [History Last Taken Unknown] omeprazole 40 mg PO DAILY 01/01/20 [History Last Taken 09/03/20 09:00] oxycodone-acetaminophen 1 ea PO 4X/DAY PRN PRN 01/01/20 [History Last Taken Unknown] pregabalin 225 mg PO TID 01/01/20 [History Last Taken 09/03/20] promethazine 25 mg PO BID PRN 01/01/20 [History Last Taken Unknown] sotalol 80 mg PO BID 01/01/20 [History Last Taken Unknown] diltiazem HCl [Cardizem CD] 120 mg PO BID #60 cap 09/04/20 [Rx Last Taken Unknown] meclizine 12.5 mg PO BID 09/04/20 [History Last Taken 09/03/20 21:00] apixaban [Eliquis] 5 mg PO BID 09/07/20 [History Last Taken Unknown] cetirizine 10 mg PO DAILY 09/07/20 [History Last Taken Unknown] levocetirizine 5 mg PO DAILY 09/07/20 [History Last Taken Unknown] Allergy/AdvReac Type Severity Reaction Status Date / Time hydromorphone [From Dilaudid] AdvReac Other Verified 09/07/20 20:12 Iodinated Contrast Media AdvReac Upset Verified 09/07/20 20:12 Stomach Family History Mother Hypertension Father Murder Patient father murdered at age 30. No marked medical history including HD, DM, CA. Surgical History H/O carpal tunnel repair H/O shoulder replacement S/P ACL repair S/P tonsillectomy and adenoidectomy Social History household members: spouse Smoking Status: Current every day smoker tobacco type: cigarettes how long ago did patient quit smoking: Patient smokes 2-3 cigarettes daily, has been cutting back for ablation. alcohol intake: never substance use type: does not use ROS ROS ED ROS Narrative No recent illness. He did have an episode of nausea and vomiting today. Review of Systems ROS Unobtainable: Denies due to encephalopathy Constitutional Constitutional ED: Denies chills or fever(s) Eyes Eyes: Denies change in vision ENT ENT ED: Denies ear pain or sore throat Cardiovascular Cardiovascular: Denies chest pain Respiratory/Chest Respiratory/Chest: Denies cough or dyspnea Gastrointestinal Gastrointestinal: Reports nausea and vomiting; Denies abdominal pain or diarrhea Genitourinary Genitourinary ED: Denies dysuria or hematuria Musculoskeletal Musculoskeletal: Denies myalgias Integumentary Denies abscess or rash Neurologic Neurologic: Denies headache(s) Psychiatric Psychiatric: Denies depression Endocrine Endocrinology: Denies polyuria Allergic/Immunologic Allergic/Immunologic ED: Denies urticaria EXAM Physical Exam Narrative Exam Narrative: Middle-aged male no acute distress. Vital signs stable afebrile. Blood pressure 178/105. Pulse 75. HEENT normal. Neck unremarkable. Lungs clear to auscultation. Heart regular rhythm rate 80. Abdomen soft nontender obese. No peritoneal signs. He has a very small amount of bruising in his right groin from the recent cardiac cath. It is actually less than I would expect. There is no significant hematoma. Left side is even less. Moving all 4 extremities. Neurovascularly intact. He does have a hematoma in his right antecubital area. It is from a peripheral IV. Not uncommon for someone being on a blood thinner. His right hand is neurovascularly intact. Otherwise exam unremarkable. Const Vital Signs: 09/07/20 20:12 09/07/20 20:38 Temperature 97.1 F L Temperature Source Temporal Pulse Rate 75 Respiratory Rate 16 Respiratory Effort Normal Non-Labored Blood Pressure 178/105 H Blood Pressure Mean 129 Pulse Ox 91 Oxygen Delivery Method Room Air Positive well nourished and well developed General Appearance ED: well developed HEENT Reports moist mucous membranes Negative for trauma or tenderness Eyes PERRL and EOMs intact bilaterally Neck no lymphadenopathy, supple and no JVD General: Negative for tenderness Chest Wall inspection of chest normal and palpation of chest normal Resp normal respiratory effort and clear to auscultation bilaterally Cardio regular rate, regular rhythm and no murmurs GI normal to inspection, nondistended, normoactive bowel sounds, non-tender and non-distended Palpation: soft Back/Spine no CVA tenderness Extremity Extremity Narrative: Moving all 4 extremities. Neurovascular intact. Hematoma in the right antecubital area and medial aspect of his arm from the IV site. General Extremety ED: Yes tenderness Neuro oriented x3 and CN's II-XII intact bilaterally Sensorium / Orientation: alert Motor Exam: strength 5/5 throughout Psych mental status grossly normal Skin no rashes or lesions noted MDM MDM MDM Narrative Medical decision making narrative: Bruising to his right antecubital area. Most likely secondary to his peripheral IV and being on Eliquis. The cast sites actually look really good. Both groins are dry clean there is small bruising in the right. But no significant hematomas. We will check blood counts and screening labs. Multiple repeat exams the last one at 10 PM patient doing well is comfortable being discharged home. He will follow up with his service counter cashier at [facility]. Lab Data Attestation: I reviewed the patient's lab results. Lab results narrative: CBC White count of 10. Hemoglobin 12.4 previously was 14.3 I think is secondary to the hematomas. PT/INR normal. Chemistries unremarkable glucose of 142. Normal creatinine gap. Labs: Laboratory Results - last 24 hr 09/07/20 09/07/20 09/07/20 20:40 20:40 20:40 WBC 10.0 RBC 4.29 L Hgb 12.4 L Hct 38.4 L MCV 89.5 MCH 28.9 MCHC 32.3 RDW Std Deviation 51.8 H RDW Coeff of Yamil 15.9 H Plt Count 205 MPV 9.5 PT 13.4 INR 1.1 Sodium 139 Potassium 4.1 Chloride 104 Carbon Dioxide 29.0 Anion Gap 6 BUN 8 Creatinine 0.71 Estim Creat Clear Calc 130.55 Est GFR (MDRD) Af Amer 149 Est GFR (MDRD) Non-Af 123 BUN/Creatinine Ratio 11.3 Glucose 142 H Calcium 8.9 Discharge Plan Triage Chief Complaint: General Illness ED Provider: Manfred Hill Dx/Rx/DC Orders Instructions: ED Hematoma Prescriptions: No Action cyclobenzaprine 10 MG tablet 10 mg PO BID PRN (Reason: Muscle Spasm) RF: 0 atorvastatin 40 MG tablet 20 mg PO QHS RF: 0 metformin 500 MG tablet 500 mg PO BID RF: 0 sotalol 80 MG tablet 80 mg PO BID RF: 0 omeprazole 40 MG capsule,delayed release(DR/EC) 40 mg PO DAILY RF: 0 promethazine 25 MG tablet 25 mg PO BID PRN (Reason: Nausea) RF: 0 lisinopril 40 MG tablet 40 mg PO DAILY RF: 0 fluticasone propionate 1 SPRAY spray,suspension 2 spray NASAL DAILY RF: 0 pregabalin 225 MG capsule 225 mg PO TID RF: 0 loratadine 10 MG capsule 10 mg PO DAILY RF: 0 hydralazine 25 MG tablet 25 mg PO TID RF: 0 oxycodone-acetaminophen 1 EACH tablet 1 ea PO 4X/DAY PRN PRN (Reason: Pain 1-10) RF: 0 docusate sodium 100 MG capsule 100 mg PO BID RF: 0 meclizine 12.5 mg Tablet 12.5 mg PO BID RF: 0 diltiazem HCl [Cardizem CD] 120 mg capsule,extended release 24hr 120 mg PO BID Qty: 60 RF: 0 cetirizine 10 mg Tablet 10 mg PO DAILY RF: 0 levocetirizine 5 mg Tablet 5 mg PO DAILY RF: 0 Eliquis 5 mg Tablet 5 mg PO BID RF: 0 Primary Care Provider: Yamilex Ellington Referrals: Yamilex Ellington, [Primary Care Provider] - As Needed Activity Restrictions/Additional Instructions: Your labs look good. The bruising is from the blood thinner in the recent IV puncture sites. Follow- up with your service counter cashier to have this reassessed. He has not had significant blood loss at this time. Return if the bruising gets a lot worse. Take it easy and rest this weekend. Ice to the bruising. Disposition Disposition: Home, Self Care
[2020-09-07 20:46] LABS: Hematocrit 38.4 % (40-54); Hemoglobin 12.4 g/dL (13.0-16.5); Mean Corp Hgb Conc 32.3 g/dL (32-36); Mean Corpuscular Hgb 28.9 pg (27.0-32.0); Mean Corpuscular Volume 89.5 fL (80-94); Mean Platelet Vol. 9.5 fl (6.2-12.0); Platelet Count 205 K/mm3 (150-450); RBC Distribution Width CV 15.9 % (11.6-14.6); RBC Distribution Width SD 51.8 fl (35.1-43.9); Red Blood Count 4.29 M/mm3 (4.6-6.2)
[2020-09-07 20:55] LABS: International Normalized Ratio 1.1; Prothrombin Time (Protime)PT. 13.4 SECONDS (11.7-14.9)
[2020-09-07 21:07] LABS: Anion Gap 6 (5-15); BUN 8 mg/dL (7-18); BUN/Creat Ratio 11.3 RATIO (10-20); Calcium,Total 8.9 mg/dL (8.5-10.1); Chloride 104 mmol/L (98-107); Creatinine, Serum 0.71 mg/dL (0.70-1.30); EST Glomerular Filtration Rate 123 mL/min (>60); Est Glom Filt Rate - Afr Amer 149 mL/min (>60); Estimated Creatinine Clearance 130.55 ml/min; Glucose 142 mg/dL (74-106); Potassium 4.1 mmol/L (3.5-5.1); Sodium Level 139 mmol/L (136-145)
[2020-09-07 22:19] VITALS: RESP 16
== END 2020-09-07 22:20 | disposition home or self-care (01) ==
PROVIDERS: Emergency Provider Emergency Medicine; PCP Internal Medicine
DX: L76.32 Postprocedural hematoma of skin and subcutaneous tissue following other procedure (principal); I48.91 Unspecified atrial fibrillation; E11.9 Type 2 diabetes mellitus without complications; I11.0 Hypertensive heart disease with heart failure; I50.9 Heart failure, unspecified; E78.00 Pure hypercholesterolemia, unspecified; F17.210 Nicotine dependence, cigarettes, uncomplicated; Z79.02 Long term (current) use of antithrombotics/antiplatelets; Z79.84 Long term (current) use of oral hypoglycemic drugs; Z79.899 Other long term (current) drug therapy
CPT/HCPCS: 80048; 85027; 85610; 99284; A4216

== ENCOUNTER 2021-10-17 20:03 | Emergency (ER) | payer MEDICARE, MEDICAID, SELFPAY ==
[2021-10-17 20:04] VITALS: BP 158/84; PULSE 106; RESP 17; TEMP 37.1; O2SAT 95; BMI 40.6
[2021-10-17 20:06] VITALS: BP 158/84; PULSE 106; RESP 17; TEMP 37.1; O2SAT 95
--- NOTE | 2021-10-17 20:31 | EKG12_ITS ---
Test Reason : DYSRHYTHMIA Blood Pressure : / mmHG Vent. Rate : 103 BPM Atrial Rate : 103 BPM P-R Int : 122 ms QRS Dur : 084 ms QT Int : 338 ms P-R-T Axes : 050 060 055 degrees QTc Int : 442 ms Sinus tachycardia Otherwise normal ECG Confirmed by MARGIE KAY, JIMMY ([id number]), development editor MAGNOLIA HAMMOND ([id number]) on 10/20/2021 10:15:08 AM Referred By: SAUD Confirmed By:JIMMY HANSON MD
--- NOTE | 2021-10-17 20:33 | EDS_ITS ---
HPI History of Present Illness Chief Complaint: Palpitations Informant: patient and spouse/S.O. Narrative Narrative: Presents with primary complaint of increased heart rate. He was concerned because he has a history of atrial fibrillation and had ablation in September 2020. He is still on sotalol. He still is on and is taking his Eliquis 5 mg twice a day. He has not missed dosages. Patient also complains that he is having pain in his knee since he had a knee re placement on Wednesday. Its not there is worsening or changing it is just not getting a lot better. He has been in contact with his surgeon from [facility] in [place]. They have been exchanging a photos of the knee. He feels this knee looks normal and expected. There is no abnormal appearance. They are going to follow him up as an outpatient. Patient also found out he was COVID-positive. This testing was done as a matter of protocol postoperatively on Wednesday. He has had some nausea and vomiting but is not sure if that is from medication surgery or COVID. He vomited this morning but he also ate 2 bologna sandwiches before he came in and did not vomit. He is not having chest pain. He states sometimes he feels short of breath but sometimes he feels that way anyway. He was also concerned because his blood pressure was up to about 165 systolic at home. No headache or neurologic symptoms. He also complains that he has chronic diabetic neuropathy and he thinks the surgery has aggravated that as he has more nighttime neuropathy in both feet. [facility] Medical History Atrial fibrillation Atrial fibrillation Bilateral chronic knee pain Chest pain Congestive heart failure (CHF) Diabetes mellitus Glenohumeral arthritis HTN (hypertension) Hypercholesterolemia Hypertension Irregular heart beat Neuropathy MAX (obstructive sleep apnea) Sleep apnea Home Medications atorvastatin 40 mg tablet 20 mg PO QHS cholesterol 01/01/20 [History Last Taken 09/03/20 21:00] cyclobenzaprine 10 mg tablet 10 mg PO BID PRN Muscle Spasm 01/01/20 [History Last Taken Unknown] docusate sodium 100 mg capsule 100 mg PO BID constipation 01/01/20 [History Last Taken 09/03/20 21:00] fluticasone propionate 50 mcg/actuation nasal spray,suspension 2 spray NASAL DAILY allergy 01/01/20 [History Last Taken 09/04/20 09:00] hydralazine 25 mg tablet 25 mg PO TID blood pressure 01/01/20 [History Last Taken 09/03/20 21:00] lisinopril 40 mg tablet 40 mg PO DAILY blood pressure 01/01/20 [History Last Taken 09/04/20 09:00] loratadine 10 mg capsule 10 mg PO DAILY allergy 01/01/20 [History Last Taken 09/04/20 09:00] metformin 500 mg tablet 500 mg PO BID diabetes 01/01/20 [History Last Taken Unknown] omeprazole 40 mg capsule,delayed release 40 mg PO DAILY stomach 01/01/20 [History Last Taken 09/03/20 09:00] oxycodone-acetaminophen 10 mg-325 mg tablet 1 ea PO 4X/DAY PRN PRN Pain 1-10 01/01/20 [History Last Taken Unknown] pregabalin 225 mg capsule 225 mg PO TID neuropathy 01/01/20 [History Last Taken 09/03/20] promethazine 25 mg tablet 25 mg PO BID PRN Nausea 01/01/20 [History Last Taken Unknown] sotalol 80 mg tablet 80 mg PO BID heart 01/01/20 [History Last Taken Unknown] diltiazem HCl 120 mg capsule,extended release 24 hr (Cardizem CD) 120 mg PO BID #60 caps 09/04/20 [Rx Last Taken Unknown] meclizine 12.5 mg tablet 12.5 mg PO BID nausea 09/04/20 [History Last Taken 09/03/20 21:00] apixaban 5 mg tablet (Eliquis) 5 mg PO BID 09/07/20 [History Last Taken Unknown] cetirizine 10 mg tablet 10 mg PO DAILY 09/07/20 [History Last Taken Unknown] levocetirizine 5 mg tablet 5 mg PO DAILY 09/07/20 [History Last Taken Unknown] ondansetron 4 mg disintegrating tablet 4 mg PO Q8H PRN nausea and vomiting #10 tabs 10/17/21 [Rx Last Taken Unknown] Allergy/AdvReac Type Severity Reaction Status Date / Time hydromorphone [From Dilaudid] AdvReac Other Verified 10/17/21 20:06 Iodinated Contrast Media AdvReac Upset Verified 10/17/21 20:06 Stomach Family History Mother Hypertension Father Murder Patient father murdered at age 30. No marked medical history including HD, DM, CA. Surgical History H/O carpal tunnel repair H/O shoulder replacement S/P ACL repair S/P tonsillectomy and adenoidectomy Social History household members: spouse Smoking Status: Current every day smoker tobacco type: cigarettes how long ago did patient quit smoking: Patient smokes 2-3 cigarettes daily, has been cutting back for ablation. alcohol intake: never substance use type: does not use ROS ROS ED Constitutional Constitutional ED: Denies chills, fever(s), subjective or sweats Eyes Eyes: Denies change in vision ENT ENT ED: Denies rhinorrhea or sore throat Cardiovascular Cardiovascular: Reports racing heartbeat; Denies chest pain or palpitations Respiratory/Chest Respiratory/Chest: Denies cough or sputum Gastrointestinal Gastrointestinal: Reports nausea and vomiting; Denies abdominal pain, constipation, diarrhea or melena Genitourinary Genitourinary ED: Denies dysuria, hematuria or urinary frequency Musculoskeletal Musculoskeletal: Denies arthralgias or myalgias Integumentary Denies rash Neurologic Neurologic: Reports paresthesias and other Details: Paresthesias and burning secondary to his chronic diabetic neuropathy. ; Denies headache(s) or weakness Endocrine Endocrinology: Denies polydipsia or polyuria Hematologic/Lymphatic Hematologic/Lymphatic: Reports easy bleeding and easy bruising Allergic/Immunologic Allergic/Immunologic ED: Denies urticaria EXAM Physical Exam Const Vital Signs: 10/17/21 20:04 10/17/21 20:06 10/17/21 20:14 Temperature 98.7 F 98.7 F Temperature Source Temporal Temporal Pulse Rate 106 H 106 H Respiratory Rate 17 17 Respiratory Effort Short of Breath Respiratory Pattern Blood Pressure 158/84 H 158/84 H Blood Pressure Mean 108 108 Pulse Ox 95 95 Oxygen Delivery Method Room Air Room Air 10/17/21 20:14 10/17/21 21:06 10/17/21 22:03 Temperature 99.6 F H Temperature Source Temporal Pulse Rate 91 78 Respiratory Rate 14 14 Respiratory Effort Short of Breath Respiratory Pattern Normal Blood Pressure 164/84 H 156/76 H Blood Pressure Mean 110 102 Pulse Ox 96 98 Oxygen Delivery Method Room Air Room Air Positive well nourished and well developed General Appearance ED: well developed and NAD HEENT Reports moist mucous membranes Eyes General Eye ED: Negative for pale conjunctiva or scleral icterus Neck supple and no JVD Chest Wall inspection of chest normal and palpation of chest normal Resp normal respiratory effort and clear to auscultation bilaterally Auscultation: Negative for rales, rhonchi or wheezes Cardio regular rhythm and no murmurs Rate: tachycardic GI normal to inspection, nondistended, normoactive bowel sounds and non-tender Back/Spine no CVA tenderness Extremity Extremity Narrative: Because incision over his left knee is healing well. He has some bruising in the area and expected skin color changes. But is not red or hot. It does not look infected. He has some mild peripheral edema which is similar side to side. Psych mental status grossly normal Skin no rashes or lesions noted Skin Narrative: Well-healing wound MDM MDM MDM Narrative Medical decision making narrative: Patient's CBC shows normal hemoglobin white count and platelets. Electrolytes are overall normal other than mild elevation of glucose at 200. Troponin is negative. Chest x-ray is negative. His nausea is better. Patient's primary concern is that he thought he might be atrial fibrillation. He is not in that. With some hydration his heart rate is down. I think he is okay for follow-up. We will write for some Zofran. Lab Data Attestation: I reviewed the patient's lab results. Labs: Laboratory Results - last 24 hr 10/17/21 10/17/21 20:23 20:23 WBC 9.6 RBC 4.46 L Hgb 13.2 Hct 40.1 MCV 89.9 MCH 29.6 MCHC 32.9 RDW Std Deviation 49.6 H RDW Coeff of Yamil 14.9 H Plt Count 209 MPV 10.6 Immature Gran % (Auto) 0.300 Neut % (Auto) 62.4 Lymph % (Auto) 20.1 Grayson % (Auto) 11.0 H Eos % (Auto) 5.9 H Baso % (Auto) 0.3 Absolute Neuts (auto) 6.0 Absolute Lymphs (auto) 1.93 Nucleated RBC % 0 Sodium 139 Potassium 3.7 Chloride 105 Carbon Dioxide 29.0 Anion Gap 5 BUN 4 L Creatinine 0.70 Estim Creat Clear Calc 130.87 Est GFR (MDRD) Af Amer 150 Est GFR (MDRD) Non-Af 124 BUN/Creatinine Ratio 5.7 L Glucose 205 H Calcium 8.5 Troponin I High Sens 6 Radiography Diagnostic Testing: Clinical Impression(s) from Imaging Studies Chest X-Ray 10/17/21 21:00 IMPRESSION: No radiographic evidence of acute cardiopulmonary disease. Electronically Signed: Seymour Prakash MD at 21:45 EDT , EKG Initial EKG: Comments: EKG done due to multiple nonspecific symptoms as part of medical work-up. EKG read by me shows sinus rhythm with mildly tachycardic rate at 103. This is clearly sinus and is not in atrial fibrillation. No ventricular ectopy. Slightly irregular baseline. No acute ST elevation or depression. [place] interval, QRS duration and QTc normal. Discharge Plan Triage Chief Complaint: Palpitations ED Provider: Wilder Victoria Dx/Rx/DC Orders Clinical Impression: Tachycardia, Dehydration, Nausea Instructions: ED Dehydration (Adult) Prescriptions: New ondansetron 4 mg tablet,disintegrating 4 mg PO Q8H PRN (Reason: nausea and vomiting) Qty: 10 0RF No Action cyclobenzaprine 10 MG tablet 10 mg PO BID PRN (Reason: Muscle Spasm) atorvastatin 40 MG tablet 20 mg PO QHS metformin 500 MG tablet 500 mg PO BID sotalol 80 MG tablet 80 mg PO BID omeprazole 40 MG capsule,delayed release(DR/EC) 40 mg PO DAILY promethazine 25 MG tablet 25 mg PO BID PRN (Reason: Nausea) lisinopril 40 MG tablet 40 mg PO DAILY fluticasone propionate 1 SPRAY spray,suspension 2 spray NASAL DAILY pregabalin 225 MG capsule 225 mg PO TID loratadine 10 MG capsule 10 mg PO DAILY hydralazine 25 MG tablet 25 mg PO TID oxycodone-acetaminophen 1 EACH tablet 1 ea PO 4X/DAY PRN PRN (Reason: Pain 1-10) docusate sodium 100 MG capsule 100 mg PO BID meclizine 12.5 mg Tablet 12.5 mg PO BID diltiazem HCl [Cardizem CD] 120 mg capsule,extended release 24hr 120 mg PO BID Qty: 60 0RF cetirizine 10 mg Tablet 10 mg PO DAILY levocetirizine 5 mg Tablet 5 mg PO DAILY Eliquis 5 mg Tablet 5 mg PO BID Primary Care Provider: Yamilex Ellington Referrals: Yamilex Ellington, [Primary Care Provider] - 3-5 Days if not improving Disposition Disposition: Home, Self Care
--- NOTE | 2021-10-17 21:00 | RAD_ITS ---
EXAM: XR CHEST, 1 VIEW CLINICAL INDICATION: covid TECHNIQUE: Frontal view of the chest. This report was created using [employer] report generation technology. COMPARISON: 09/04/2020. FINDINGS: LUNGS AND PLEURAL SPACES: Unremarkable. No consolidation or edema. No pneumothorax. No effusion. HEART: Unremarkable. Cardiac silhouette not enlarged. MEDIASTINUM: Central airways and mediastinal contour are unremarkable. BONES/JOINTS: Unremarkable. SOFT TISSUES: Unremarkable. IMPRESSION: No radiographic evidence of acute cardiopulmonary disease. EXAM: XR CHEST, 1 VIEW CLINICAL INDICATION: covid TECHNIQUE: Frontal view of the chest. This report was created using [employer]vine report generation technology. COMPARISON: None. FINDINGS: LUNGS AND PLEURAL SPACES: Unremarkable. No consolidation or edema. No pneumothorax. No effusion. HEART: Unremarkable. Cardiac silhouette not enlarged. MEDIASTINUM: Central airways and mediastinal contour are unremarkable. BONES/JOINTS: Unremarkable. SOFT TISSUES: Unremarkable. IMPRESSION: No radiographic evidence of acute cardiopulmonary disease. EXAM: XR CHEST, 1 VIEW CLINICAL INDICATION: covid TECHNIQUE: Frontal view of the chest. This report was created using Sandvine report generation technology. COMPARISON: None. FINDINGS: LUNGS AND PLEURAL SPACES: Unremarkable. No consolidation or edema. No pneumothorax. No effusion. HEART: Unremarkable. Cardiac silhouette not enlarged. MEDIASTINUM: Central airways and mediastinal contour are unremarkable. BONES/JOINTS: Bilateral shoulder arthroplasties, incompletely imaged. SOFT TISSUES: Unremarkable. RAD/Chest 1 View (Portable) IMPRESSION: No radiographic evidence of acute cardiopulmonary disease. Electronically Signed: Seymour Prakash MD at 21:45 EDT ,
[2021-10-17 21:06] VITALS: BP 164/84; PULSE 91; RESP 14; TEMP 37.6; O2SAT 96
[2021-10-17 21:16] LABS: Absolute Lymphocyte Count 1.93 X10^3/uL (0.83-4.51); Basophil# 0.03 X10^3/uL; Basophil% 0.3 % (0-1); Eosinophil# 0.57 X10^3/uL; Eosinophils% 5.9 % (0-5); Hematocrit 40.1 % (40-54); Hemoglobin 13.2 g/dL (13.0-16.5); Lymphocyte # 1.93 X10^3/ul (0.83-4.51); Lymphocyte % 20.1 % (19-41); Mean Corp Hgb Conc 32.9 g/dL (32-36); Mean Corpuscular Hgb 29.6 pg (27.0-32.0); Mean Corpuscular Volume 89.9 fL (80-94); Mean Platelet Vol. 10.6 fl (6.2-12.0); Monocyte# 1.06 X10^3/uL; NRBC Flagged by Analyzer 0 % (0-5); Neutrophil % 62.4 % (47-70); Platelet Count 209 K/mm3 (150-450); RBC Distribution Width CV 14.9 % (11.6-14.6); RBC Distribution Width SD 49.6 fl (35.1-43.9); Red Blood Count 4.46 M/mm3 (4.6-6.2); White Blood Count 9.6 K/mm3 (4.4-11.0)
[2021-10-17] MEDS: 0.9% Normal Saline 1,000 ML 1000 ML IV (21:16)
[2021-10-17] MEDS: Ondansetron 4 MG/2 ML Vial IV (21:16)
[2021-10-17] MEDS: Morphine 4 MG/ML Syringe IV (21:16)
[2021-10-17 21:43] LABS: Anion Gap 5 (5-15); BUN 4 mg/dL (7-18); BUN/Creat Ratio 5.7 RATIO (10-20); Calcium,Total 8.5 mg/dL (8.5-10.1); Chloride 105 mmol/L (98-107); EST Glomerular Filtration Rate 124 mL/min (>60); Est Glom Filt Rate - Afr Amer 150 mL/min (>60); Estimated Creatinine Clearance 130.87 ml/min; Glucose 205 mg/dL (74-106); Potassium 3.7 mmol/L (3.5-5.1); Sodium Level 139 mmol/L (136-145); Troponin-I HS 6 pg/mL (3.0-78.0)
[2021-10-17 22:03] VITALS: BP 156/76; PULSE 78; RESP 14; O2SAT 98
[2021-10-17 22:41] VITALS: BP 155/78; PULSE 88; RESP 16; TEMP 37.2; O2SAT 98
== END 2021-10-17 22:42 | disposition home or self-care (01) ==
PROVIDERS: Emergency Provider Emergency Medicine; PCP Internal Medicine; Visit Provider Emergency Medicine
DX: U07.1 COVID-19 (principal); I50.9 Heart failure, unspecified; I11.0 Hypertensive heart disease with heart failure; E11.40 Type 2 diabetes mellitus with diabetic neuropathy, unspecified; I48.91 Unspecified atrial fibrillation; R00.2 Palpitations; F17.210 Nicotine dependence, cigarettes, uncomplicated; E78.00 Pure hypercholesterolemia, unspecified; E86.0 Dehydration; Z96.659 Presence of unspecified artificial knee joint; Z79.01 Long term (current) use of anticoagulants; Z79.84 Long term (current) use of oral hypoglycemic drugs; Z79.899 Other long term (current) drug therapy
CPT/HCPCS: 71045; 80048; 84484; 85025; 93005; 96361; 96374; 96375; 99285; J7030; A4216; J2405

== ENCOUNTER 2021-11-03 10:30 | Outpatient (RCR) | payer MEDICARE, MEDICAID, SELFPAY ==
--- NOTE | 2021-10-21 16:55 | HP.PTEVAL ---
Patient's Visit Information GAGE ANTOINE is a 56 year old M referred to Physical Therapy by Dr. Dyllan Scott MD with a diagnosis of L knee OA s/p TKA 10/15. Date of Evaluation: 10/21/21 Physical Therapist: Christiano Betts, DPT, OCS, CSCS - Visit Plan Frequency: 3x /Week Duration: 4-6 Weeks Plan: 3x/week for 4-6 weeks for. 1. patella mobs, rollout quad and knee P-AAROM. 2. strength L LE. 3. progress to general functional strength. 4. gait progression from walker and stairs. ice as needed. 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 Scott at [facility]. 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 Pain in last 3 days 10/15 , was In ER Wednesday with pain and elevated HR. Was given fluids and IV and zofran and pain shot and stabilized HR. Doctor called in Percoset and tylenol and has been much better. Pt has afib. Had ablation last year. Doctor wants HR down about 110 or less and it is influenced by pain. Was 6/10 earlier in day. At rest it is 6/10. Sleeping is interrupted as he gets 2 hours at a time in bed on back. HEP: AP and did not do much else uintil about yesterday. ice at home and meds to control pain.Uses wh walker to get around. Lives with and adult son in two story but on first floor. 4 steps to enter with 2 rails and doing them well verbalizing appropriate technique. Basifc ADLs are going OK, dresses self. has heloed a little with shower, bathroom. Did not need AD prior to surgery , has canes and crutches. Disabled due to heart back and shoulders and knee pain. Hobbies: spends time at doctor appointment. General house chores, maintain vehicles. - Pain L knee Pain Intensity (Out of 10): 6 Pain Intensity Range: 6, 8 - Objective Walks into PT with Wh walker mod I slow but decent gait pattern about 50% WB. Trasnfers I bed and chair on his own. incision dressed with bandage well, no signs of excessive redness heat or swelling. patella motion is mod dificit L vs R inf and sup. ankle and hip aROM is WFL, unable to SLR on L. knee AROM -10 to 70, 85 PROM today. girth is 20 inches at joint and 26 6 sp. strength L quad 9 adn HS 30, painful on quad. - Balance/Special Test Scores TUG Test Time Seconds: 33 WOMAC Total Score: 96 WOMAC Percentatge: 0 - Goals Goal 1:: ST: 0-120 AROM to assist with mobility Goal Time Frame: 2-4 Weeks Goal 2:: ST: sllep through night without pain interruption Goal Time Frame: 2-4 Weeks Goal 3:: LT. Walk community without AD I Goal Time Frame: 4-6 Weeks Goal 4:: steps with one rail recip and safe Goal Time Frame: 4-6 Weeks Goal 5:: 20 or less WOMAC Goal Time Frame: 4-6 Weeks - Rehabilitation Potential Physical Therapy Diagnosis: s/p TKa with resuilting weakness, ROM loss and funcitonal deficits. Rehabilitation Potential: Fair - Anticipated Interventions Patient/Client Instruction: Educate patient on: Condition, Plan of Care For the Purpose of:: To decrease pain, To increase ROM, To improve muscle performance and motor function, To increase tolerance to activity/condition/position, To improve ability of physical actions for home/community/work/leisure, To improve gait and locomotor functions Therapeutic Exercise to Include: Strength training, Postural training, Flexibilty training, Gait and locomotor training, Passive ROM, Active ROM For the Purpose of:: To decrease pain, To increase ROM, To improve nutrient delivery to tissue, To improve muscle performance and motor function, To increase tolerance to activity/condition/position, To decrease level of supervision to perform tasks Manual Therapy Techniques to Include: Mobilization, Soft tissue mobilization For the Purpose of:: To decrease pain, To decrease swelling/inflammation Cryotherapy (ice pack, ice massage): Yes For the Purpose of:: To decrease swelling/inflammation Thank you for the opportunity to evaluate your patient. For Medicare and Medicare HMO plans, please review the plan of care and approve it. It will need to be FAXED BACK to us at [phone] for Medicare purposes. For Medicare only, by signing this I certify the plan of care. Please let me know if there are questions or concerns regarding this plan of care. Physician Signature: Date:
--- NOTE | 2021-12-15 12:08 | HP.PT.NRP ---
GAGE ANTOINE was seen in my office for initial evaluation on 10/21/21. The following Plan of Care was established for this patient: Initial Frequency: 3x /Week Initial Duration: 4-6 Weeks Patient/Client Instruction: Educate patient on: Condition, Plan of Care For the Purpose of:: To decrease pain, To increase ROM, To improve muscle performance and motor function, To increase tolerance to activity/condition/position, To improve ability of physical actions for home/community/work/leisure, To improve gait and locomotor functions Therapeutic Exercise to Include: Strength training, Postural training, Flexibilty training, Gait and locomotor training, Passive ROM, Active ROM For the Purpose of:: To decrease pain, To increase ROM, To improve nutrient delivery to tissue, To improve muscle performance and motor function, To increase tolerance to activity/condition/position, To decrease level of supervision to perform tasks Manual Therapy Techniques to Include: Mobilization, Soft tissue mobilization For the Purpose of:: To decrease pain, To decrease swelling/inflammation Cryotherapy (ice pack, ice massage): Yes For the Purpose of:: To decrease swelling/inflammation This patient was last seen in our office 11/03/21. Pertinent comments regarding their Physical therapy will appear below: Pt seen 4 visits of POC but did not schedule or attend any further visits. Tt his point, it has been over 5 weeks and I will discontinue due to nonattendance. At this point I will be discontinuing this patient from physical therapy. I would be happy to see this patient again in the future if found appropriate by the physician. Thank you! Christiano Betts, DPT, OCS, CSCS Balance/Gait/Functional tests - Balance/Special Test Scores TUG Test Time Seconds: 33 WOMAC Total Score: 96 WOMAC Percentage: 0
== END 2021-11-03 19:00 | disposition home or self-care (01) ==
LOC: PT 10:30
PROVIDERS: PCP Internal Medicine; Referring Provider Orthopaedic Surgery; Visit Provider Orthopaedic Surgery
DX: M17.12 Unilateral primary osteoarthritis, left knee (principal); Z47.1 Aftercare following joint replacement surgery; Z96.652 Presence of left artificial knee joint
CPT/HCPCS: 97110; 97140; 97161

== ENCOUNTER → 2022-02-03 | Outpatient (CLI) | payer MEDICARE, MEDICAID, SELFPAY ==
--- NOTE | 2022-02-03 13:01 | ECHOCS_ITS ---
Reason For Study: Afib/Flutter Procedure This was a 2D Doppler, Color Flow transthoracic echocardiogram. The study was technically difficult. Contrast injection was performed. Exam performed in department. Left Ventricle Normal LV size. Left ventricular systolic function is normal. The estimated ejection fraction is 60 %. Stage 2 diastolic dysfunction. No regional wall motion abnormalities noted. Right Ventricle Normal RV size. Normal systolic function. Atria The left atrium is moderately enlarged. Normal right atrium. Mitral Valve Normal mitral valve. Tricuspid Valve Normal tricuspid valve. Aortic Valve Trisinus/trileaflet aortic valve. Pulmonic Valve Normal pulmonic valve. Great Vessels Normal aortic root. The pulmonary artery is normal size. Normal inferior vena cava. Pericardium/Pleural No pericardial effusion. Medication 20 gauge I.V. with prn adaptor inserted into right arm. Diluted definity 3ml given slow IV push to enhance endocardial definition. MMode/2D Measurements & Calculations LVIDd: 5.0 cm IVSd: 1.2 cm LA dimension: 4.2 cm LVIDs: 3.1 cm LVPWd: 1.1 cm RVDd: 4.2 cm FS: 38.1 % LAV(MOD-bp): 101.3 ml LA A4 area: 27.1 cm2 RA A4 area: 16.0 cm2 LAV(MOD-bp) Indexed: 41.3 ml/m2 LAV(MOD-sp2): 98.2 ml LAV(MOD-sp4): 94.9 ml Time Measurements MV dec time: 0.24 sec Doppler Measurements & Calculations MV E max jose: 90.9 cm/sec Lat Peak E' Jose: 12.3 cm/sec Med Peak E' Jose: 9.7 cm/sec MV A max jose: 84.2 cm/sec E/E' lat: 7.4 E/E' med: 9.4 MV E/A: 1.1 MV V2 max: 92.8 cm/sec MV P1/2t max jose: 93.9 cm/sec Ao V2 max: 151.4 cm/sec MV max P.4 mmHg MV P1/2t: 78.7 msec Ao max P.2 mmHg MV V2 mean: 53.5 cm/sec MV dec slope: 349.4 cm/sec2 MV mean P.3 mmHg MV V2 VTI: 29.0 cm MVA(P1/2t): 2.8 cm2 LV V1 max: 137.1 cm/sec PA V2 max: 95.4 cm/sec LV V1 max P.5 mmHg ECHO/Echo Complete W/ Contrast Interpretation Summary Normal LV size. Left ventricular systolic function is normal. The estimated ejection fraction is 60 %. The left atrium is moderately enlarged. Stage 2 diastolic dysfunction. Ordering Physician: Rob King Referring Physician: Rob King Performed By: Kole Andrews RCS
== END | disposition home or self-care (01) ==
LOC: CVS 13:01
PROVIDERS: PCP Internal Medicine; Referring Provider Internal Medicine Cardiovascular Disease; Visit Provider Internal Medicine Cardiovascular Disease
DX: I48.0 Paroxysmal atrial fibrillation (principal)
CPT/HCPCS: 93306; Q9957; A4216; C8929

== ENCOUNTER → 2022-03-17 | Outpatient (CLI) | payer MEDICARE, MEDICAID, SELFPAY ==
--- NOTE | 2022-03-17 14:27 | CT_ITS ---
STUDY: LOW DOSE CT LUNG CANCER SCREENING REASON FOR EXAM: Male, 57 years old. Lung cancer screening -- and gt;20 pk yr hx;current smoker; asymptomatic RADIATION DOSAGE (If Supplied By Facility): CTDIvol = ( 4.02 ) mGy, DLP = ( 142.45 ) mGycm TECHNIQUE: No contrast was administered. Low dose technique was utilized (average mAS-38 and kVp 120). 1.25 mm axial source images with a slice interval of 1.25-mm were reconstructed in lung windows. 2.5 mm axial source images with a slice interval of 2.5-mm were reconstructed in lung windows. 5.0 mm axial source images with a slice interval of 5.0-mm were reconstructed in soft tissue windows. COMPARISON: None. NODULES: There is a 6.5 mm calcified granuloma in the peripheral lateral aspect of the left upper lobe. Small calcified granuloma in the anterior aspect of the left lower lobe. Emphysema: Mild increased markings in the posterior medial aspect of the right middle lobe as well as in the posterior medial aspect of the lingular segment of the left upper lobe abutting the right minor fissure and left major fissures respectively. Endobronchial lesion: Unremarkable Aorta: Unremarkable CORONARY ARTERIES: Coronary artery calcification is not seen. Heart: Unremarkable Pulmonary artery: Unremarkable Mediastinal nodes: Small mediastinal lymph nodes. Other chest and abdominal findings: CT/Low Dose CT Lung Screening IMPRESSION: Lung-RADS category 3 - Continue screening with LDCT in 6 months. IMPORTANT NOTES FOR USE: ACR Lung-RADS Version 1.1 Assessment Categories Release Date: 2018 Category: Coded 0-4 bases on nodule(s) with highest degree of suspicion. Negative screen is defined as categories 1 and 2; a positive screen is defined as categories 3 and 4. Category 3 and 4A nodules that are unchanged on interval CT should be coded as category 2, and individuals returned to screening in 12 months. Category 4X: Category 3 or 4 nodules with additional imaging findings that increase the suspicion of lung cancer, such as spiculation, GGN that doubles in size in 1 year, enlarged lymph notes, etc. Category Modifiers: S (significant finding unrelated to lung cancer) Electronically Signed: Jules Darnell MD at 15:20 EST ,
== END | disposition home or self-care (01) ==
LOC: CT 14:26
PROVIDERS: PCP Internal Medicine; Referring Provider Nurse Practitioner Family; Visit Provider Nurse Practitioner Family
DX: Z87.891 Personal history of nicotine dependence (principal)
CPT/HCPCS: 71271

== ENCOUNTER → 2022-03-31 | Outpatient (CLI) | payer MEDICARE, MEDICAID, SELFPAY ==
[2022-03-31 08:41] LABS: Hemoglobin A1c 7.7 % (3.8-5.6)
== END | disposition home or self-care (01) ==
LOC: LAB 07:17
PROVIDERS: PCP Internal Medicine; Referring Provider Internal Medicine; Visit Provider Internal Medicine
DX: E11.9 Type 2 diabetes mellitus without complications (principal); Z87.09 Personal history of other diseases of the respiratory system
CPT/HCPCS: 36415; 83036

== ENCOUNTER → 2022-05-22 | Outpatient (CLI) | payer MEDICARE, MEDICAID, SELFPAY ==
--- NOTE | 2022-05-22 16:30 | RAD_ITS ---
STUDY: X-RAY - RIGHT KNEE REASON FOR EXAM: Male, 57 years old. KNEE PAIN TECHNIQUE: 3 view(s) of the knee. COMPARISON: None. FINDINGS: Normal visualized distal femur. Normal visualized proximal tibia and fibula. Normal proximal tibiofibular articulation. Surgical anchors consistent with anterior cruciate ligament reconstruction. There is moderate degenerative arthrosis of the medial femorotibial compartment with moderate joint space narrowing. There is moderate degenerative arthrosis of the lateral femorotibial compartment with moderate joint space narrowing. There is moderate degenerative arthrosis of the patellofemoral articulation. The soft tissue structures are unremarkable. RAD/Knee 3 Views IMPRESSION: Degenerative arthrosis. Electronically Signed: Jay Umana MD at 16:23 EDT ,
--- NOTE | 2022-05-22 16:40 | RAD_ITS ---
STUDY: X-RAY - RIGHT SHOULDER REASON FOR EXAM: Male, 57 years old. SHOULDER PAIN TECHNIQUE: 4 view(s) of the shoulder. COMPARISON: None. FINDINGS: Status post right shoulder arthroplasty. The prosthesis appears located. No ostial lysis to suggest loosening. Normal acromioclavicular joint. Normal acromion. Normal humeral head and visualized proximal humerus. The soft tissue structures are unremarkable. Normal visualized pulmonary apex. RAD/Shoulder min 2 Views IMPRESSION: Normal x-ray examination of the shoulder after arthroplasty. Electronically Signed: Jay Umana MD at 16:18 EDT ,
== END | disposition home or self-care (01) ==
LOC: RAD 16:13
PROVIDERS: PCP Internal Medicine; Referring Provider Internal Medicine; Visit Provider Internal Medicine
DX: M25.561 Pain in right knee (principal)
CPT/HCPCS: 73030; 73562

== ENCOUNTER → 2022-06-24 | Outpatient (CLI) | payer MEDICARE, MEDICAID, SELFPAY ==
--- NOTE | 2022-06-24 17:15 | MRI_ITS ---
EXAM: MR RIGHT LOWER EXTREMITY WITHOUT INTRAVENOUS CONTRAST, KNEE CLINICAL INDICATION: pain TECHNIQUE: Multiplanar and multisequence MR images of the right knee without intravenous contrast. This report was created using [employer] report generation technology. COMPARISON: None. FINDINGS: BONES/JOINTS: Moderate osteoarthrosis at the medial and lateral femorotibial compartments with moderate grade chondral disease involving the medial and lateral femoral condyles. Small suprapatellar enthesophyte. EXTENSOR MECHANISM: Unremarkable. MEDIAL MENISCUS: Complex tear of the posterior horn medial meniscus. LATERAL MENISCUS: Unremarkable. MEDIAL CAPSULE/SUPPORTING STRUCTURES: Unremarkable. Intact. LATERAL CAPSULE/SUPPORTING STRUCTURES: Unremarkable. Lateral collateral ligamentous complex, inclusive of the popliteal tendon, are intact. ANTERIOR CRUCIATE LIGAMENT: Intact graft. POSTERIOR CRUCIATE LIGAMENT: Intact MUSCLES: Unremarkable. CARTILAGE: See above. FLUID: Small suprapatellar joint effusion. MRI/Lower Ext Joint Only (Routine) IMPRESSION: Complex tear of the posterior horn medial meniscus. Electronically Signed: Seymour Prakash MD at 21:26 EDT ,
== END | disposition home or self-care (01) ==
LOC: MRI 16:58
PROVIDERS: PCP Internal Medicine; Referring Provider Orthopaedic Surgery; Visit Provider Orthopaedic Surgery
DX: M23.41 Loose body in knee, right knee (principal); M25.361 Other instability, right knee
CPT/HCPCS: 73721

== ENCOUNTER → 2022-06-29 | Outpatient (CLI) | payer MEDICARE, MEDICAID, SELFPAY | END | disposition home or self-care (01) | LOC: LAB 06:11 | PROVIDERS: PCP Internal Medicine; Referring Provider Internal Medicine; Visit Provider Internal Medicine | DX: E11.9 Type 2 diabetes mellitus without complications (principal) | CPT/HCPCS: 36415; 83036 ==

== ENCOUNTER 2022-07-22 07:27 | Day surgery (SDC) | payer MEDICARE, MEDICAID, SELFPAY ==
[2022-07-22] VITALS (7 sets, daily range): BP systolic 125–142; BP diastolic 68–86; PULSE 60–69; RESP 16; TEMP 36.6–36.9; O2SAT 95–97; BMI 39.2
--- NOTE | 2022-07-22 | IMM_PTH ---
PATIENT: GAGE ANTOINE LOC: EN U#:[id number] AGE/SX: 57/M ROOM: RE07/22/[address]: Dr. Stephan Ferrer DO : 1965 BED: DIS: 07/22/2022 SPEC #: [id number] RECD: 07/23/22 10:42 STATUS: OLIVE REQ #: [id number] CRISTINA: 07/22/22 00:[address]: Stephan Ferrer DEPT: IMMUNOHISTOCHEMISTRY RECD BY: Leah Segundo ENTERED: 07/23/22 10:43 SP TYPE: IMMUNO OTHR DR: Dr. Yamilex Ellington DO Tissues: C - Stomach, NOS Procedures: H Pylori (initial) PHYSICIAN & INSTITUTION [place] [id number] SPECIMEN INFORMATION: Tissue Source: C ? Lesser curvature Clinical Info: GERD, history of colon polyps Specimen Number: [id number] CPT code: 05972 METHODOLOGY: Deparaffinized sections of prefer/formalin-fixed tissue or PAP/DQ stained slides are incubated with monoclonal/polyclonal antibodies/oligonucleotide probes. Localization is made via biotin free immunoperoxidase method. Appropriate controls are performed and reacted as expected. Results on target cell population are indicated in the following table: RESULTS: ANTIBODY / CLONE RESULT Block C H Pylori (polyclonal) negative These tests were developed and their performance characteristics determined by [facility]. They may not have been cleared or approved by the U.S. Food and Drug Administration. The FDA has determined that such clearance or approval is not necessary. The above immunohistochemical/dualISH markers are ordered and reviewed by the Pathologist. INTERPRETATION: Nicole frost, biopsy: Negative for Helicobacter pylori organisms. SJ:josh 07/23/2022
[2022-07-22] MEDS: Lactated Ringers 1,000 ML 15 ML IV (08:21)
--- NOTE | 2022-07-22 08:21 | PCM.HP.BLA ---
History and Physical Date of Admission: 07/22/22 GAGE ANTOINE, is a 57 M who presents to the office today to establish with GI since he is due for colonoscopy. His last colonoscopy was in 05/2016--3 polyps, one was tubular adenoma, the others were hyperplastic. His mother had colon cancer diagnosed age 66 yo. His bowels are typically regular, no melena or hematochezia. No abdominal pain. He takes omeprazole 40 mg daily for heartburn; can flare up from certain foods. Had an EGD about 10 yrs ago, no hx Stern's. ROS Const Constitutional: Positive for fatigue ENT ENT: No difficulty swallowing Cardio Cardiology: Positive for leg pain with exertion Gastro GI: Positive for heartburn; No abdominal pain, belching, bloating, change in bowel habits, change in stool character, coffee ground emesis, constipation, cramping, diarrhea, difficulty swallowing, feeling full early, excessive flatus, incontinent of stools, Vomiting blood/hematemesis, Blood in stool, loose stools, Black,tarry stools, nausea/dyspepsia, pain with swallowing, vomiting or other Musc Musculoskeletal: Positive for joint pain, back pain, joint swelling, stiffness, Arthritis, sciatica, leg pain at night and leg pain with exertion Skin Skin: No yellowing of the eye or itchy eyes Psych Psychiatric: No anxiety and No depression Endo Endocrine: Positive for fatigue Aller/Imm Allergy/Immunologic: No itchy eyes Wing/Lymp Hematologic/Lymphatic: No easy bleeding or easy bruising Exam Const General: cooperative and comfortable Nutritional Appearance: obese Orientation: alert, awake and oriented x3 HENMT Head: normal to inspection Eyes Sclera: sclerae normal Resp Effort & Inspection: normal respiratory effort GI Inspection: obesity Neuro Gait: normal gait Psych Mood: euthymic mood Quality Reporting Tobacco Screening ([facility] 138) Smoking Status: Current every day smoker Assessment and Plan Assessment and Plan (1) GERD (gastroesophageal reflux disease): ?Status:?Chronic ?Plan: Continue omeprazole 40 mg qam, schedule EGD to eval for Stern's (2) Hx of colonic polyps: ?Status:?Acute ?Plan: Schedule colonoscopy f/u in office 2 wks after endoscopies (3) FH: colon cancer in relative diagnosed at >50 years old: ?Status:?Acute ?Plan: as above I have examined the patient and the H&P has been reviewed. There are no clinical changes since date of exam.
--- NOTE | 2022-07-22 08:30 | COLBX_PTH ---
PATIENT: GAGE ANTOINE LOC: EN U#:[id number] AGE/SX: 57/M ROOM: RE07/22/[address]: Dr. Stephan Ferrer DO : 1965 BED: DIS: 07/22/2022 SPEC #: [id number] RECD: 07/22/22 11:00 STATUS: OLIVE YEISON #: [id number] CRISTINA: 07/22/22 08:[address]: Stephan Ferrer DEPT: SURGICAL PATHOLOGY RECD BY: Robert Cowan ENTERED: 07/22/22 11:40 SP TYPE: COLON BX OTHR DR: Dr. Yamilex Ellington, Tissues: A - Duodenum, NOS B - Esophagus, NOS C - COLON BIOPSY D - COLON BIOPSY Procedures: Special Stain Group II Surgery Specimen Level IV Alcian Blue/PAS (control) HEADER OPERATION: Colonoscopy with biopsy, E[place] ([facility] [place]) with biopsies PRE-OP DIAGNOSIS: GERD, history of colon polyps TISSUE SUBMITTED: A ? Duodenum biopsy, B ? Distal esophagus biopsy, C ? Lesser curvature biopsy, D ? Hepatic flexure polyp biopsy MICROSCOPIC DIAGNOSIS A. Duodenum, biopsy: Fragments of duodenal mucosa with mild Derrell gland hyperplasia. B. Distal esophagus, biopsy: Fragments of gastroesophageal mucosa with chronic inflammation. Intestinal metaplasia (goblet cell metaplasia) not identified. See comment. C. Lesser curvature, biopsy: Minimal gastritis. See microscopic description and comment. D. Hepatic flexure polyp, biopsy: Tubular adenoma. SJ:josh 07/23/2022 COMMENT B. Alcian blue/PAS stain with matched control is used in the evaluation of the specimen. C. The results of immunohistochemistry for Helicobacter pylori will be reported separately ([id number]). MICROSCOPIC DESCRIPTION Slides are reviewed. C. The specimen shows fragments of gastric mucosa with chronic inflammatory cell infiltrates in the lamina propria consisting of lymphocytes and plasma cells, consistent with minimal chronic gastritis. GROSS DESCRIPTION A - Received in fixative is one container labeled with the patient's name and designated duodenum biopsy. The specimen consists of two irregular fragments of light tolliver soft tissue that in aggregate measure 0.6 x 0.3 x 0.1 cm. The specimen is totally submitted in one cassette. B - Received in fixative is one container labeled with the patient's name and designated distal esophagus biopsy. The specimen consists of two irregular fragments of light tolliver soft tissue that in aggregate measure 0.6 x 0.3 x 0.1 cm. The specimen is totally submitted in one cassette. C - Received in fixative is one container labeled with the patient's name and designated lesser curvature biopsy. The specimen consists of one irregular fragment of light tolliver soft tissue that measures 0.4 x 0.3 x 0.1 cm. The specimen is totally submitted in one cassette. D - Received in fixative is one container labeled with the patient's name and designated hepatic flexure polyp biopsy. The specimen consists of one irregular fragment of light tolliver soft tissue that measures 0.3 x 0.3 x 0.1 cm. The specimen is totally submitted in one cassette. / SJ:rg 07/22/2022 TC:1 CPT: 11962 x4, 91790
--- NOTE | 2022-07-22 09:05 | OP.CCLET_ITS ---
07/22/2022 Yamilex Ellington Do Re : Upper GI endoscopy procedure for Saad Barriga Dear Rakel This procedure was performed on Friday, July 22, 2022. My impressions and recommendations are as follows: Impressions : - Z-line irregular, 42 cm from the incisors. Biopsied. - Gastritis. Biopsied. - Erythematous duodenopathy. Biopsied. Recommendations : - Discharge patient to home. - Resume previous diet. - Continue present medications. - Await pathology results. My findings are described in the full procedure note, which is enclosed. If I can be of further assistance, please feel free to contact me at . Sincerely, Stephan Ferrer DO 07/22/2022 9:05:06 AM This report has been signed electronically.
--- NOTE | 2022-07-22 09:05 | OP.EGD_ITS ---
Patient Name: Saad Barriga Procedure Date: 07/22/2022 8:22 AM Date of : 1965 Age: 57 Procedure: Upper GI endoscopy Indications: Heartburn Providers: Stephan Ferrer DO Medicines: Monitored Anesthesia Care Patient Profile: This is a 57 year old male. Refer to note in patient chart for documentation of history and physical. Patient has symptoms of chronic heartburn. Complications: No immediate complications. Procedure: Pre-Anesthesia Assessment: - Prior to the procedure, a History and Physical was performed, and patient medications and allergies were reviewed. The patient is competent. The risks and benefits of the procedure and the sedation options and risks were discussed with the patient. All questions were answered and informed consent was obtained. Patient identification and proposed procedure were verified by the physician in the pre-procedure area. Mental Status Examination: alert and oriented. Airway Examination: normal oropharyngeal airway and neck mobility. Respiratory Examination: clear to auscultation. CV Examination: normal. Prophylactic Antibiotics: The patient does not require prophylactic antibiotics. Prior Anticoagulants: The patient has taken no previous anticoagulant or antiplatelet agents. ASA Grade Assessment: II - A patient with mild systemic disease. After reviewing the risks and benefits, the patient was deemed in satisfactory condition to undergo the procedure. The anesthesia plan was to use monitored anesthesia care (MAC). Immediately prior to administration of medications, the patient was re-assessed for adequacy to receive sedatives. The heart rate, respiratory rate, oxygen saturations, blood pressure, adequacy of pulmonary ventilation, and response to care were monitored throughout the procedure. The physical status of the patient was re-assessed after the procedure. After obtaining informed consent, the endoscope was passed under direct vision. Throughout the procedure, the patient's blood pressure, pulse, and oxygen saturations were monitored continuously. The colonoscope was introduced through the mouth, and advanced to the second part of duodenum. The upper GI endoscopy was accomplished without difficulty. The patient tolerated the procedure well. Scope In: 8:36:38 AM Scope Out: 8:40:52 AM Total Procedure Duration Time 0 hours 4 minutes 14 seconds Findings: The Z-line was irregular and was found 42 cm from the incisors. Biopsies were taken with a cold forceps for histology. Verification of patient identification for the specimen was done. Estimated blood loss was minimal. Localized mild inflammation characterized by erosions and erythema was found on the lesser curvature of the stomach. Biopsies were taken with a cold forceps for histology. Verification of patient identification for the specimen was done. Estimated blood loss was minimal. Patchy mildly erythematous mucosa without active bleeding and with no stigmata of bleeding was found in the duodenal bulb. Biopsies were taken with a cold forceps for histology. Verification of patient identification for the specimen was done. Estimated blood loss was minimal. Impression: - Z-line irregular, 42 cm from the incisors. Biopsied. - Gastritis. Biopsied. - Erythematous duodenopathy. Biopsied. Recommendation: - Discharge patient to home. - Resume previous diet. - Continue present medications. - Await pathology results. Procedure Code(s): --- Professional --- 56019, Esophagogastroduodenoscopy, flexible, transoral; with biopsy, single or multiple CPT copyright 2017 [employer]. All rights reserved. The codes documented in this report are preliminary and upon bowling ball engraver review may be revised to meet current compliance requirements. Stephan Ferrer DO 07/22/2022 9:05:06 AM This report has been signed electronically. Number of Addenda: 0 Note Initiated On: 07/22/2022 8:22 AM
--- NOTE | 2022-07-22 09:09 | OP.COLON_ITS ---
Patient Name: Saad Barriga Procedure Date: 07/22/2022 8:41 AM Date of : 1965 Age: 57 Procedure: Colonoscopy Indications: High risk colon cancer surveillance: Personal history of colonic polyps Providers: Stephan Ferrer DO Medicines: Monitored Anesthesia Care Patient Profile: This is a 57 year old male. Refer to note in patient chart for documentation of history and physical. Patient has symptoms of chronic heartburn. Last Colonoscopy: 5 years ago. Complications: No immediate complications. Procedure: Pre-Anesthesia Assessment: - Prior to the procedure, a History and Physical was performed, and patient medications and allergies were reviewed. The patient is competent. The risks and benefits of the procedure and the sedation options and risks were discussed with the patient. All questions were answered and informed consent was obtained. Patient identification and proposed procedure were verified by the physician in the pre-procedure area. Mental Status Examination: alert and oriented. Airway Examination: normal oropharyngeal airway and neck mobility. Respiratory Examination: clear to auscultation. CV Examination: normal. Prophylactic Antibiotics: The patient does not require prophylactic antibiotics. Prior Anticoagulants: The patient has taken no previous anticoagulant or antiplatelet agents. ASA Grade Assessment: II - A patient with mild systemic disease. After reviewing the risks and benefits, the patient was deemed in satisfactory condition to undergo the procedure. The anesthesia plan was to use monitored anesthesia care (MAC). Immediately prior to administration of medications, the patient was re-assessed for adequacy to receive sedatives. The heart rate, respiratory rate, oxygen saturations, blood pressure, adequacy of pulmonary ventilation, and response to care were monitored throughout the procedure. The physical status of the patient was re-assessed after the procedure. After I obtained informed consent, the scope was passed under direct vision. Throughout the procedure, the patient's blood pressure, pulse, and oxygen saturations were monitored continuously. The colonoscope was introduced through the anus and advanced to the terminal ileum. The colonoscopy was performed without difficulty. The patient tolerated the procedure well. The quality of the bowel preparation was adequate. Scope In: 8:43:08 AM Scope Withdrawal Time 0 hours 12 minutes 41 seconds Scope Out: 8:58:14 AM Total Procedure Duration Time 0 hours 15 minutes 6 seconds Findings: The perianal and digital rectal examinations were normal. A 5 mm polyp was found in the hepatic flexure. The polyp was sessile. The polyp was removed with a cold snare. Resection and retrieval were complete. Verification of patient identification for the specimen was done. Estimated blood loss was minimal. Multiple small-mouthed diverticula were found in the recto-sigmoid colon, sigmoid colon and descending colon. The entire examined colon appeared normal on direct and retroflexion views. Impression: - One 5 mm polyp at the hepatic flexure, removed with a cold snare. Resected and retrieved. - Diverticulosis in the recto-sigmoid colon, in the sigmoid colon and in the descending colon. - The entire examined colon is normal on direct and retroflexion views. Recommendation: - Discharge patient to home. - Resume previous diet. - Continue present medications. - Await pathology results. - Repeat colonoscopy in 5 years for surveillance. Procedure Code(s): --- Professional --- 46239, Colonoscopy, flexible; with removal of tumor(s), polyp(s), or other lesion(s) by snare technique CPT copyright 2017 [employer]. All rights reserved. The codes documented in this report are preliminary and upon ob tech review may be revised to meet current compliance requirements. Stephan Ferrer DO 07/22/2022 9:08:34 AM This report has been signed electronically. Number of Addenda: 0 Note Initiated On: 07/22/2022 8:41 AM
--- NOTE | 2022-07-22 09:09 | OP.CCLET_ITS ---
07/22/2022 Yamilex Ellington Do Re : Colonoscopy procedure for Saad Hurtador Rakel This procedure was performed on Friday, July 22, 2022. My impressions and recommendations are as follows: Impressions : - One 5 mm polyp at the hepatic flexure, removed with a cold snare. Resected and retrieved. - Diverticulosis in the recto-sigmoid colon, in the sigmoid colon and in the descending colon. - The entire examined colon is normal on direct and retroflexion views. Recommendations : - Discharge patient to home. - Resume previous diet. - Continue present medications. - Await pathology results. - Repeat colonoscopy in 5 years for surveillance. My findings are described in the full procedure note, which is enclosed. If I can be of further assistance, please feel free to contact me at . Sincerely, Stephan Ferrer DO 07/22/2022 9:08:34 AM This report has been signed electronically.
[2022-07-22 09:11] LABS: Bedside Glucose 136 mg/dL (74-106)
== END 2022-07-22 09:36 | disposition home or self-care (01) ==
LOC: EN 07:28 → AC 07:29
PROVIDERS: PCP Internal Medicine; Referring Provider Internal Medicine; Visit Provider Internal Medicine Gastroenterology
PROC: 0DJD8ZZ Inspection of Lower Intestinal Tract, Via Natural or Artificial Opening Endoscopic (ICD-10-PCS; CPT 45378; principal; 2022-07-22 08:25)
DX: D12.3 Benign neoplasm of transverse colon (principal); I48.0 Paroxysmal atrial fibrillation; E11.9 Type 2 diabetes mellitus without complications; K21.00 Gastro-esophageal reflux disease with esophagitis, without bleeding; K31.89 Other diseases of stomach and duodenum; K57.30 Diverticulosis of large intestine without perforation or abscess without bleeding; K29.70 Gastritis, unspecified, without bleeding; F17.200 Nicotine dependence, unspecified, uncomplicated; G47.33 Obstructive sleep apnea (adult) (pediatric); E66.9 Obesity, unspecified; I10 Essential (primary) hypertension; Z79.899 Other long term (current) drug therapy; Z79.01 Long term (current) use of anticoagulants; Z79.84 Long term (current) use of oral hypoglycemic drugs; Z86.010 Personal history of colon polyps; Z80.0 Family history of malignant neoplasm of digestive organs; Z68.38 Body mass index [BMI] 38.0-38.9, adult
CPT/HCPCS: 43239; 45385; 82962; 88305; 88313; 88342; J7120; J2405

== ENCOUNTER → 2022-10-12 | Outpatient (CLI) | payer MEDICARE, MEDICAID, SELFPAY ==
--- NOTE | 2022-10-12 15:08 | CT_ITS ---
INDICATION: follow nodule EXAMINATION: CT CHEST WITHOUT CONTRAST - CT Chest W/O Contrast Injection TECHNIQUE: Helically acquired images were obtained of the chest. A radiation dose optimization technique was used for this scan. IV Contrast dosage and agent: None. COMPARISON: 03/17/2022 FINDINGS: LUNGS, PLEURA AND LARGE AIRWAYS: Mild emphysema. No change in the calcified granulomata. No noncalcified nodule or mass. No pleural effusion or thickening. No pneumothorax. THYROID: No thyroid lesions. HEART AND PERICARDIUM: Heart size is normal. No pericardial effusion. CORONARY ARTERIES: Coronary artery calcification is not seen. VESSELS: Thoracic aorta is not dilated. MEDIASTINUM AND ERNESTO: No mediastinal or hilar adenopathy. Esophagus is unremarkable. No hiatal hernia. UPPER ABDOMEN: No acute pathology. BONES: Mild dextroscoliosis of the thoracic spine with degenerative disc disease. Status post bilateral shoulder arthroplasty which produces streak artifact and obscures the chest. CT/Chest without Contrast IMPRESSION: Mild emphysema without pneumonia, atelectasis, noncalcified nodule or mass. Electronically Signed: Jay Umana MD at 14:27 EDT ,
== END | disposition home or self-care (01) ==
LOC: CT 15:04
PROVIDERS: PCP Internal Medicine; Referring Provider Nurse Practitioner Acute Care; Visit Provider Nurse Practitioner Acute Care
DX: R91.8 Other nonspecific abnormal finding of lung field (principal)
CPT/HCPCS: 71250

== ENCOUNTER → 2022-10-20 | Outpatient (CLI) | payer MEDICARE, MEDICAID, SELFPAY ==
--- NOTE | 2022-10-20 06:48 | MRI_ITS ---
STUDY: MRI RIGHT SHOULDER REASON FOR EXAM: Male, 57 years old. Right shoulder pain status post shoulder arthroplasty. TECHNIQUE: Standardized fat and water weighted pulse sequences were obtained in all 3 orthogonal planes. Right shoulder arthroplasty has global metal artifact with basically no diagnostic information available. COMPARISON: Right shoulder x-ray dated May 22, 2022. FINDINGS: Shoulder arthroplasty metallic artifact obscures much of the the acromioclavicular joint, the entire glenohumeral joint and the majority of the shaft of the humerus. No abnormality of the poorly visualized muscles. Sagittal images show mild AC joint hypertrophy. No other abnormality. MRI/Upper Ext Joint Only(Routine) IMPRESSION: Shoulder arthroplasty with global metallic artifact and extreme limitation of any diagnostic information as described. Electronically Signed: Rico Zapata MD at 13:18 EDT ,
== END | disposition home or self-care (01) ==
LOC: MRI 06:38
PROVIDERS: PCP Internal Medicine; Referring Provider Internal Medicine; Visit Provider Internal Medicine
DX: M25.511 Pain in right shoulder (principal); G89.29 Other chronic pain
CPT/HCPCS: 73221